=== PATIENT | female | born 1980 | race Caucasian/White ===

== ENCOUNTER 2017-03-10 20:36 | Emergency (ER) | payer BC ==
[2017-03-10] MEDS ORDERED: Sodium Chloride 0.9% 1,000 ML IV ONE (21:05)
[2017-03-10] MEDS ORDERED: Ondansetron 4 MG/2 ML SDV IVPUSH ONE (21:05)
--- NOTE | 2017-03-10 21:25 | EDM.PDOC ---
ED HPI GENERAL MEDICAL PROBLEM - General Chief Complaint: Abdominal Pain Stated Complaint: NAUSEA/WEAK/CHILLS/DIZZY/HEADACHE Time Seen by Provider: 03/10/17 20:59 - History of Present Illness INITIAL COMMENTS - FREE TEXT/NARRATIVE: HISTORY AND PHYSICAL: History of present illness: Patient 36-year-old white female presents with concern nausea vomiting diarrhea 1 day she thinks is related to some bad food she ate at a fast food restaurant she states she had some Rasmussen's approximately 2:00 in the started several hours subsequent. She's had no fever chills she has some crampy abdominal discomfort denies vaginal discharge or irregular bleeding denies other concern Review of systems: As per history of present illness and below otherwise all systems reviewed and negative. Past medical history: As per history of present illness and as reviewed below otherwise noncontributory. Surgical history: As per history of present illness and as reviewed below otherwise noncontributory. Social history: No reported history of drug or alcohol abuse. Family history: As per history of present illness and as reviewed below otherwise noncontributory. Physical exam: HEENT: Atraumatic, normocephalic, pupils reactive, negative for conjunctival pallor or scleral icterus, mucous membranes moist, throat clear, neck supple, nontender, trachea midline. Lungs: Clear to auscultation, breath sounds equal bilaterally, chest nontender. Heart: S1S2, regular, negative for clicks, rubs, or JVD. Abdomen: Soft, nondistended, no localized tenderness. Negative for masses or hepatosplenomegaly. Negative for costovertebral tenderness. Pelvis: Stable nontender. Genitourinary: Deferred. Rectal: Deferred. Extremities: Atraumatic, negative for cords or calf pain. Neurovascular unremarkable. Neuro: Awake, alert, oriented. Cranial nerves II through XII unremarkable. Cerebellum unremarkable. Motor and sensory unremarkable throughout. Exam nonfocal. Diagnostics: CBC CMP amylase lipase UA hCG Therapeutics: Normal saline 1 L bolus Zofran 4 mg IV Toradol 30 mg IV when necessary Impression: #1 vomiting/diarrhea #2 dehydration Definitive disposition and diagnosis as appropriate pending reevaluation and review of above. abdomen Pain Score (Numeric/FACES): 7 - Related Data Allergies Allergy/AdvReac Type Severity Reaction Status Date / Time No Known Allergies Allergy Verified 03/10/17 20:43 Home Meds: Home Meds Escitalopram [Lexapro] 10 mg PO DAILY 03/10/17 [History] Levothyroxine [Synthroid] 50 mcg PO ACBREAKFAST 03/10/17 [History] Past Medical History - Past Health History Medical/Surgical History: Denies Medical/Surgical History [employer] History: Reports: Psychiatric History: Reports: Anxiety Endocrine/Metabolic History: Reports: Hypothyroidism Hematologic History: Reports: Anemia - Past Surgical History HEENT Surgical History: Reports: Tonsillectomy Musculoskeletal Surgical History: Reports: Other (See Below) Other Musculoskeletal Surgeries/Procedures:: tendon repair Social & Family History - Family History Family Medical History: Noncontributory Cardiac: Reports: Hypertension, [place] Respiratory: Reports: COPD OBGYN: Reports: Psychiatric: Reports: Depression Endocrine/Metabolic: Reports: Diabetes, type II - Tobacco Use Smoking Status *Q: Never Smoker Years of Tobacco use: 5 Packs/Tins Daily: 1 Second Hand Smoke Exposure: Yes - Recreational Drug Use Recreational Drug Use: No ED ROS GENERAL - Review of Systems Review Of Systems: ROS reveals no pertinent complaints other than HPI. ED EXAM, GENERAL - Physical Exam Exam: See Below (See dictation) Course - Vital Signs Last Recorded V/S: Last Vital Signs Temp 36.4 C 03/10/17 20:36 Pulse 85 03/10/17 21:33 Resp 18 03/10/17 21:33 BP 122/72 03/10/17 21:33 Pulse Ox 100 03/10/17 21:33 - Orders/Labs/Meds Orders: Active Orders 24 hr Category Date Time Status Abdomen Pelvis w Cont [CT] Stat Exams 03/10/17 22:09 Taken Labs: Laboratory Tests 03/10/17 03/10/17 03/10/17 Range/Units 21:05 21:05 21:08 WBC 15.71 H (4.0-11.0) K/uL RBC 4.64 (4.30-5.90) M/uL Hgb 14.5 (12.0-16.0) g/dL Hct 41.8 (36.0-46.0) % MCV 90.1 (80.0-98.0) fL MCH 31.3 (27.0-32.0) pg MCHC 34.7 (31.0-37.0) g/dL RDW Std Deviation 40.2 (28.0-62.0) fl RDW Coeff of Almita 12 (11.0-15.0) % Plt Count 317 (150-400) K/uL MPV 9.90 (7.40-12.00) fL Neut % (Auto) 85.9 H (48.0-80.0) % Lymph % (Auto) 7.3 L (16.0-40.0) % [place] % (Auto) 5.3 (0.0-15.0) % Eos % (Auto) 1.2 (0.0-7.0) % Baso % (Auto) 0.3 (0.0-1.5) % Neut # (Auto) 13.5 H (1.4-5.7) K/uL Lymph # (Auto) 1.2 (0.6-2.4) K/uL [place] # (Auto) 0.8 (0.0-0.8) K/uL Eos # (Auto) 0.2 (0.0-0.7) K/uL Baso # (Auto) 0.0 (0.0-0.1) K/uL Nucleated RBC % 0.0 /100WBC Nucleated RBCs # 0 K/uL Sodium (136-146) mmol/L Potassium (3.5-5.1) mmol/L Chloride (98-110) mmol/L Carbon Dioxide (21-31) mmol/L BUN (6.0-23.0) mg/dL Creatinine (0.6-1.5) mg/dL Est Cr Clr Drug Dosing mL/min Estimated GFR (MDRD) ml/min Glucose (60-110) mg/dL Calcium (8.8-10.8) mg/dL Total Bilirubin (0.1-1.5) mg/dL AST (5-40) IU/L ALT (8-54) IU/L Alkaline Phosphatase (40-150) Total Protein (6.0-8.0) g/dL Albumin (3.5-5.0) g/dL Globulin (2.0-3.5) g/dL Albumin/Globulin Ratio (1.3-2.8) Amylase (10-90) U/L Lipase (7-80) U/L Urine Color YELLOW Urine Appearance CLEAR Urine pH 6.0 (5.0-8.0) Ur Specific [place] 1.025 (1.001-1.035) Urine Protein TRACE (NEGATIVE) mg/dL Urine Glucose (UA) NEGATIVE (NEGATIVE) mg/dL Urine Ketones TRACE H (NEGATIVE) mg/dL Urine Occult Blood TRACE-INTACT (NEGATIVE) Urine Nitrite NEGATIVE (NEGATIVE) Urine Bilirubin NEGATIVE (NEGATIVE) Urine Urobilinogen 0.2 (<2.0) EU/dL Ur Leukocyte Esterase NEGATIVE (NEGATIVE) Urine RBC 0-1 (0-2/HPF) Urine WBC 1-2 (0-5/HPF) Ur Epithelial Cells FEW (NONE-FEW) Urine Bacteria FEW (NEGATIVE) Urine HCG, Qual NEGATIVE (NEGATIVE) 03/10/17 Range/Units 21:08 WBC (4.0-11.0) K/uL RBC (4.30-5.90) M/uL Hgb (12.0-16.0) g/dL Hct (36.0-46.0) % MCV (80.0-98.0) fL MCH (27.0-32.0) pg MCHC (31.0-37.0) g/dL RDW Std Deviation (28.0-62.0) fl RDW Coeff of [place]mita (11.0-15.0) % Plt Count (150-400) K/uL MPV (7.40-12.00) fL Neut % (Auto) (48.0-80.0) % Lymph % (Auto) (16.0-40.0) % [place] % (Auto) (0.0-15.0) % Eos % (Auto) (0.0-7.0) % Baso % (Auto) (0.0-1.5) % Neut # (Auto) (1.4-5.7) K/uL Lymph # (Auto) (0.6-2.4) K/uL [place] # (Auto) (0.0-0.8) K/uL Eos # (Auto) (0.0-0.7) K/uL Baso # (Auto) (0.0-0.1) K/uL Nucleated RBC % /100WBC Nucleated RBCs # K/uL Sodium 142 (136-146) mmol/L Potassium 3.8 (3.5-5.1) mmol/L Chloride 104 (98-110) mmol/L Carbon Dioxide 23 (21-31) mmol/L BUN 17 (6.0-23.0) mg/dL Creatinine 0.8 (0.6-1.5) mg/dL Est Cr Clr Drug Dosing 81.19 mL/min Estimated GFR (MDRD) > 60.0 ml/min Glucose 112 H (60-110) mg/dL Calcium 9.7 (8.8-10.8) mg/dL Total Bilirubin 0.5 (0.1-1.5) mg/dL AST 29 (5-40) IU/L ALT 28 (8-54) IU/L Alkaline Phosphatase 138 (40-150) Total Protein 8.5 H (6.0-8.0) g/dL Albumin 4.8 (3.5-5.0) g/dL Globulin 3.7 H (2.0-3.5) g/dL Albumin/Globulin Ratio 1.3 (1.3-2.8) Amylase 106 H (10-90) U/L Lipase 28 (7-80) U/L Urine Color Urine Appearance Urine pH (5.0-8.0) Ur Specific [place] (1.001-1.035) Urine Protein (NEGATIVE) mg/dL Urine Glucose (UA) (NEGATIVE) mg/dL Urine Ketones (NEGATIVE) mg/dL Urine Occult Blood (NEGATIVE) Urine Nitrite (NEGATIVE) Urine Bilirubin (NEGATIVE) Urine Urobilinogen (<2.0) EU/dL Ur Leukocyte Esterase (NEGATIVE) Urine RBC (0-2/HPF) Urine WBC (0-5/HPF) Ur Epithelial Cells (NONE-FEW) Urine Bacteria (NEGATIVE) Urine HCG, Qual (NEGATIVE) Meds: Medications Discontinued Medications Generic Name Dose Route Start Last Admin Trade Name Freq PRN Reason Stop Dose Admin Sodium Chloride 1,000 mls @ 999 mls/hr 03/10/17 21:05 03/10/17 21:09 Normal Saline IV 03/10/17 22:05 999 mls/hr .Bolus ONE Administration Iopamidol 100 ml 03/10/17 22:41 03/10/17 22:41 Isovue Multipack-370 (76%) IVPUSH 03/10/17 22:42 100 ml ONETIME STA Administration Ketorolac Tromethamine 30 mg 03/10/17 21:48 03/10/17 21:55 Toradol IVPUSH 03/10/17 21:49 30 mg ONETIME ONE Administration Ondansetron HCl 4 mg 03/10/17 21:05 03/10/17 21:10 Zofran IVPUSH 03/10/17 21:06 4 mg ONETIME ONE Administration Departure - Departure Time of Disposition: 23:11 Disposition: Home, Self-Care 01 Condition: Good Clinical Impression: Gastroenteritis, Dehydration - Discharge Information Referrals: PCP,None [Primary Care Provider] - Forms: ED Department Discharge Additional Instructions: The following information is given to patients seen in the emergency department who are being discharged to home. This information is to outline your options for follow-up care. We provide all patients seen in our emergency department with a follow-up referral. The need for follow-up, as well as the timing and circumstances, are variable depending upon the specifics of your emergency department visit. If you don't have a primary care physician on staff, we will provide you with a referral. We always advise you to contact your personal physician following an emergency department visit to inform them of the circumstance of the visit and for follow-up with them and/or the need for any referrals to a consulting specialist. The emergency department will also refer you to a specialist when appropriate. This referral assures that you have the opportunity for followup care with a specialist. All of these measure are taken in an effort to provide you with optimal care, which includes your followup. Under all circumstances we always encourage you to contact your private physician who remains a resource for coordinating your care. When calling for followup care, please make the office aware that this follow-up is from your recent emergency room visit. If for any reason you are refused follow-up, please contact the emergency department at and asked to speak to the emergency department charge nurse. Push fluids clear liquids as directed follow primary medical doctor 1-2 days return as needed as discussed - My Orders Last 24 Hours: My Active Orders 03/10/17 22:09 Abdomen Pelvis w Cont [CT] Stat - Assessment/Plan Last 24 Hours: My Active Orders 03/10/17 22:09 Abdomen Pelvis w Cont [CT] Stat
[2017-03-10 21:39] LABS: CHLORIDE,CL 104 mmol/L (98-110); SODIUM,NA 142 mmol/L (136-146)
[2017-03-10] MEDS ORDERED: Ketorolac 30 MG/ML SDV IVPUSH ONE (21:48)
[2017-03-10] MEDS ORDERED: Iopamidol 755 MG/ML 500 ML Multipack Bottle IVPUSH STA (22:41)
[2017-03-10 23:21] VITALS: BP 100/55
--- NOTE | 2017-03-11 10:15 | CT ---
EXAM DATE: 03/10/17 PATIENT'S AGE: 36 Patient: MISBAH TIWARI Facility: [place], [place] Site . Site : 1980 Study: CT Abdomen/Pelvis [id number]/[id number] 10:45:24 PM Ordering Physician: Simone Valenzuela Final Report: INDICATION: Generalized abdominal pain with vomiting, nausea, diarrhea. HCG negative. TECHNIQUE: CT abdomen and pelvis acquired with i.v. 100 mL Isovue 370. Coronal and sagittal reformats were obtained. COMPARISON: None FINDINGS: Lower chest: Unremarkable. Liver: Mild low attenuation liver parenchyma relative to the spleen, suggesting fatty infiltration. No focal liver lesion. Spleen: Unremarkable. Pancreas: Unremarkable. Gallbladder and bile ducts: Unremarkable. Kidneys: Unremarkable. No kidney or ureteral stones and no hydronephrosis seen. Adrenal glands: Unremarkable. GI tract: Loops of large and small bowel are normal in caliber. No abnormal bowel wall thickening or abnormal mesenteric fat stranding or fluid. Scattered segments of large and small bowel are mildly fluid-filled, nonspecific finding. Normal appendix with intraluminal air well visualized, series 201, image 98. Vascular: Unremarkable. Lymph nodes: Unremarkable. Miscellaneous: Unremarkable. No pneumoperitoneum is seen. No significant ascites is noted. Pelvic Organs: Right calcified uterine fibroid, series 201, image 91. Adnexa unremarkable. Bladder unremarkable. No significant free pelvic fluid. Bones: Unremarkable for age. IMPRESSION: 1. Normal appendix. 2. Scattered loops of large and small bowel demonstrate intraluminal fluid, nonspecific finding. Based on clinical history, findings may indicate underlying enteritis. No bowel obstruction, free air, or significant free fluid. Dictated by Ludin Jennings MD @ 03/10/2017 10:55:31 PM Dictated by: Ludin Jennings MD @ 03/10/2017 22:55:42 (Electronic Signature) Report Signed by Proxy. [facility]
== END 2017-03-10 23:22 | disposition home or self-care (01) ==
LOC: MW.ED 20:36
DX: K52.9 Noninfective gastroenteritis and colitis, unspecified (principal); E86.0 Dehydration; E11.9 Type 2 diabetes mellitus without complications
CPT/HCPCS: 36415; 74177; 80053; 81001; 81025; 82150; 83690; 85025; 96361; 96374; 96375; 99284; J1885; J2405; J7040; Q9967; 99283

== ENCOUNTER 2018-07-29 19:34 | Inpatient (IN) | payer BC ==
[2018-07-29] MEDS: Lactated Ringers 1,000 ML IV SCH ×2 (19:55→23:37)
[2018-07-29] MEDS ORDERED: Sodium Chloride 0.9% 10 ML SDV IV PRN (19:57)
[2018-07-29] MEDS ORDERED: ceFAZolin 2 GM in Premix Bag 1 BAG IV ONE (19:57)
[2018-07-29] MEDS ORDERED: Citric Acid/Sodium Citrate Solution 30 ML Cup PO ONE (19:57)
[2018-07-29] MEDS ORDERED: Sodium Chloride 0.9% 2.5 ML Syringe FLUSH PRN (19:57)
[2018-07-29] MEDS ORDERED: Sodium Chloride 0.9% 10 ML Syringe FLUSH PRN (19:57)
[2018-07-29] MEDS ORDERED: Oxytocin/0.9 % Sodium Chloride 30 UNIT/500 ML BAG IV SCH (20:00)
[2018-07-29] MEDS ORDERED: Lactated Ringers 1,000 ML IV SCH (20:00)
[2018-07-29] MEDS ORDERED: Morphine PF 10 MG/10 ML SDV ONE (20:16)
[2018-07-29] MEDS ORDERED: Rocuronium 10 MG/ML 10 ML Syringe ONE (20:36)
[2018-07-29] MEDS ORDERED: Propofol 200 MG/20 ML SDV ONE (20:36)
[2018-07-29] MEDS ORDERED: Lidocaine 2% 5 ML SDV ONE (20:36)
[2018-07-29] MEDS ORDERED: Ondansetron 4 MG/2 ML SDV ONE (20:36)
[2018-07-29] MEDS ORDERED: fentaNYL 250 MCG/5 ML SDV ONE ×2 (20:37→21:00)
[2018-07-29] MEDS ORDERED: Midazolam 1 MG/ML 2 ML SDV ONE (20:37)
[2018-07-29] MEDS ORDERED: Oxytocin/0.9 % Sodium Chloride 30 UNIT/500 ML BAG ONE (20:45)
[2018-07-29] MEDS ORDERED: HYDROmorphone 2 MG/ML Syringe ONE ×2 (20:47→22:10)
[2018-07-29] MEDS ORDERED: Phenylephrine/Normal Saline 100 MCG/ML 10 ML Syringe ONE (21:20)
[2018-07-29] MEDS ORDERED: fentaNYL 100 MCG/2 ML SDV ONE (21:28)
[2018-07-29] MEDS ORDERED: Arista AH Absorbable Hemostat ONE (21:32)
--- NOTE | 2018-07-29 21:48 | PCM.PREANE ---
Preanesthetic Assessment - Procedure Proposed Procedure: Stat for herpes outbreak /P:6 - Initially dilated to 5 and quickly progresses to 8 cm - Anesthesia/Transfusion/Family Hx Anesthesia History: Prior Anesthesia Without Reaction Family History of Anesthesia Reaction: No Transfusion History: No Prior Transfusion(s) - Review of Systems General: No Symptoms Pulmonary: No Symptoms Cardiovascular: No Symptoms Gastrointestinal: No Symptoms Neurological: No Symptoms Other: Reports: Anxiety - Physical Assessment NPO Status Date: 07/29/18 NPO Status Time: 13:00 Height: 5 ft 3 in Weight: 220 lb ASA Class: 2E Mental Status: Alert & Oriented x3 Airway Class: Mallampati = 2 Dentition: Reports: Normal Dentition Thyro-Mental Finger Breadths: 3 Mouth Opening Finger Breadths: 3 ROM/Head Extension: Full Lungs: Clear to Auscultation, Normal Respiratory Effort Cardiovascular: Regular Rate, Regular Rhythm - Lab Values: Laboratory Last Values WBC 12.34 K/uL (4.0-11.0) H 07/29/18 20:16 RBC 3.79 M/uL (4.30-5.90) L 07/29/18 20:16 Hgb 10.9 g/dL (12.0-16.0) L 07/29/18 20:16 Hct 32.2 % (36.0-46.0) L 07/29/18 20:16 MCV 85.0 fL (80.0-98.0) 07/29/18 20:16 MCH 28.8 pg (27.0-32.0) 07/29/18 20:16 MCHC 33.9 g/dL (31.0-37.0) 07/29/18 20:16 RDW Std Deviation 45.0 fl (28.0-62.0) 07/29/18 20:16 RDW Coeff of Almita 15 % (11.0-15.0) 07/29/18 20:16 Plt Count 212 K/uL (150-400) 07/29/18 20:16 MPV 11.80 fL (7.40-12.00) 07/29/18 20:16 Nucleated RBC % 0.3 /100WBC 07/29/18 20:16 Nucleated RBCs # 0 K/uL 07/29/18 20:16 Membrane Rupture POSITIVE 03/13/19 19:30 - Allergies Allergies/Adverse Reactions: Allergies Allergy/AdvReac Type Severity Reaction Status Date / Time No Known Allergies Allergy Verified 07/29/18 19:46 - Blood Blood Available: No Product(s) Available: None - Anesthesia Plan Free Text/Narrative:: SAB with backup GA - Acknowledgements Anesthesia Type Planned: Spinal Pt an Appropriate Candidate for the Planned Anesthesia: Yes Alternatives and Risks of Anesthesia Discussed w Pt/Guardian: Yes Pt/Guardian Understands and Agrees with Anesthesia Plan: Yes PreAnesthesia Questionnaire - Past Health History Medical/Surgical History: Denies Medical/Surgical History [employer]TRY [employer] History: Reports: Psychiatric History: Reports: Anxiety Endocrine/Metabolic History: Reports: Hypothyroidism Hematologic History: Reports: Anemia - Past Surgical History HEENT Surgical History: Reports: Tonsillectomy Musculoskeletal Surgical History: Reports: Other (See Below) Other Musculoskeletal Surgeries/Procedures:: tendon repair - HOME MEDS Home Medications: Home Meds Escitalopram [Lexapro] 10 mg PO DAILY 03/10/17 [History] Levothyroxine [Synthroid] 50 mcg PO ACBREAKFAST 03/10/17 [History] Acetaminophen [Tylenol Extra Strength] 1,000 mg PO BID 03/14/18 [History] Slp216/FA/Omega3/Dha/Fish Oil [ Gummies] 2 tab PO DAILY 03/14/18 [ History] - CURRENT (IN HOUSE) MEDS Current Meds: Current Medications Oxytocin/Sodium Chloride (Oxytocin 30 Unit/500 Ml-Ns) 30 unit in 500 mls @ 250 mls/hr IV TITRATE JIM Lactated Ringer's (Ringers, Lactated) 1,000 mls @ 500 mls/hr IV BOLUS JIM Sodium Chloride (Saline Flush) 10 ml FLUSH ASDIRECTED PRN PRN Reason: Keep Vein Open Sodium Chloride (Saline Flush) 2.5 ml FLUSH ASDIRECTED PRN PRN Reason: Keep Vein Open Sodium Chloride (Normal Saline) 10 ml IV ASDIRECTED PRN PRN Reason: IV Use Discontinued Medications Citric Acid/Sodium Citrate (Bicitra Solution) 30 ml PO ONETIME ONE Stop: 07/29/18 19:58 Fentanyl (Sublimaze) Confirm Administered Dose 250 mcg .ROUTE .STK-MED ONE Stop: 07/29/18 20:38 Fentanyl (Sublimaze) Confirm Administered Dose 250 mcg .ROUTE .STK-MED ONE Stop: 07/29/18 21:01 Hydromorphone HCl (Dilaudid) Confirm Administered Dose 2 mg .ROUTE .STK-MED ONE Stop: 07/29/18 20:48 Cefazolin Sodium/Dextrose 2 gm (/ Premix) 50 mls @ 100 mls/hr IV ONETIME ONE Stop: 07/29/18 20:26 Oxytocin/Sodium Chloride (Oxytocin 30 Unit/500 Ml-Ns) Confirm Administered Dose 30 unit in 500 mls @ as directed .ROUTE .STK-MED ONE Stop: 07/29/18 20:46 Lidocaine (Xylocaine-Mpf 2%) Confirm Administered Dose 5 ml .ROUTE .STK-MED ONE Stop: 07/29/18 20:37 Midazolam HCl (Versed 1 Mg/Ml) Confirm Administered Dose 2 mg .ROUTE .STK-MED ONE Stop: 07/29/18 20:38 Morphine Sulfate (Duramorph Pf) Confirm Administered Dose 10 mg .ROUTE .STK-MED ONE Stop: 07/29/18 20:17 Ondansetron HCl (Zofran) Confirm Administered Dose 4 mg .ROUTE .STK-MED ONE Stop: 07/29/18 20:37 Phenylephrine HCl (Phenylephrine In Ns 100 Mcg/Ml) Confirm Administered Dose 1 mg .ROUTE .STK-MED ONE Stop: 07/29/18 21:21 Propofol (Diprivan 20 Ml) Confirm Administered Dose 200 mg .ROUTE .STK-MED ONE Stop: 07/29/18 20:37 Rocuronium [place] (Zemuron) Confirm Administered Dose 100 mg .ROUTE .STK-MED ONE Stop: 07/29/18 20:37
[2018-07-29] MEDS ORDERED: Octyl 2-Cyanoacrylate 1 Tube ONE (21:50)
[2018-07-29] MEDS ORDERED: diphenhydrAMINE 50 MG/ML SDV ONE (22:10)
[2018-07-29] MEDS ORDERED: Ketorolac 30 MG/ML SDV ONE (22:27)
[2018-07-29] MEDS ORDERED: Lanolin 100% Cream 7 GM Tube TOP PRN (22:30)
[2018-07-29] MEDS ORDERED: Ondansetron 4 MG/2 ML SDV IVPUSH PRN (22:30)
[2018-07-29] MEDS ORDERED: Bisacodyl 10 MG Supp RECTAL PRN (22:30)
--- NOTE | 2018-07-29 22:45 | PCM.LDHP ---
L&D History of Present Illness - General Date of Service: 07/29/18 (late entry) Admit Problem/Dx: Patient Status Order with Admit Dx/Problem 07/29/18 19:47 Patient Status [ADT] Routine 07/29/18 22:30 Patient Status [ADT] Routine Admission Diagnosis/Problem Admission Diagnosis/Problem - planned Source of Information: Patient History Limitations: Reports: No Limitations - History of Present Illness Timing/Duration: Reports: gradual onset, getting worse Location, : Reports: Abdomen Quality: Reports: Pressure Severity: Moderate Improves with: Reports: None Worsens with: Reports: None Associated Symptoms: Reports: vaginal fluid (Loss of fluid, clear per patient, just prior to arrival. Then, contractions began. 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 She has not ever had a known herpes outbreak in the past.) - Related Data Allergies/Adverse Reactions: Allergies Allergy/AdvReac Type Severity Reaction Status Date / Time No Known Allergies Allergy Verified 07/29/18 19:46 Home Medications: Home Meds Escitalopram [Lexapro] 10 mg PO DAILY 03/10/17 [History] Levothyroxine [Synthroid] 50 mcg PO ACBREAKFAST 03/10/17 [History] Acetaminophen [Tylenol Extra Strength] 1,000 mg PO BID 03/14/18 [History] [id number]/FA/Omega3/Dha/Fish Oil [ Gummies] 2 tab PO DAILY 03/14/18 [ History] Past Medical History - Past Health History Medical/Surgical History: Denies Medical/Surgical History (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 No prior known outbreaks.) [place] History: Reports: Psychiatric History: Reports: Anxiety Endocrine/Metabolic History: Reports: Hypothyroidism Hematologic History: Reports: Anemia - Past Surgical History HEENT Surgical History: Reports: Tonsillectomy Musculoskeletal Surgical History: Reports: Other (See Below) Other Musculoskeletal Surgeries/Procedures:: tendon repair Social & Family History - Family History Family Medical History: Noncontributory Cardiac: Reports: Hypertension, [place] Respiratory: Reports: COPD OBGYN: Reports: Psychiatric: Reports: Depression Endocrine/Metabolic: Reports: Diabetes, type II - Tobacco Use Smoking Status *Q: Never Smoker Second Hand Smoke Exposure: No - Caffeine Use Caffeine Use: Reports: Soda - Recreational Drug Use Recreational Drug Use: No H&P Review of Systems - Review of Systems: Review Of Systems: See Below General: Reports: No Symptoms HEENT: Reports: No Symptoms Pulmonary: Reports: No Symptoms Cardiovascular: Reports: No Symptoms Gastrointestinal: Reports: No Symptoms Genitourinary: Reports: Other (Uterine contractions, becoming more painful.) Musculoskeletal: Reports: No Symptoms Skin: Reports: Other (She noticed a sore on her labia. Unsure if she may have shaved it. Concern for a herpes outbreak.) Psychiatric: Reports: No Symptoms Neurological: Reports: No Symptoms Hematologic/Lymphatic: Reports: No Symptoms Immunologic: Reports: No Symptoms L&D Exam - Exam Exam: See Below (At the end of the physical exam, after identifying the labial ulcerated lesion, discussion was held regarding delivery. Risks, benefits discussed. Purpose is for protection of baby. Parents voice understanding, and agree to delivery.) - Vital Signs Vital Signs: Last Vital Signs Temp 36 C 07/29/18 22:10 Pulse 102 H 07/29/18 22:35 Resp 1 L 07/29/18 22:35 BP 132/64 07/29/18 22:35 Pulse Ox 100 07/29/18 22:35 Weight: 99.79 kg - OB Specific Contraction Intensity: Moderate to Strong Heart Tones: Present Heart Rate (FHR) Variability: Moderate (6-25 bmp) Presentation: Vertex - Costello Score Costello Score Cervix Position: Midposition Costello Score Consistency: Soft Costello Score Dilation: > 5 cm - Exam General: Alert, Oriented, Cooperative Neck: Supple Lungs: Clear to Auscultation Cardiovascular: Regular Rate, Regular Rhythm GI/Abdominal Exam: Soft Genitourinary: Other (Thereis a small lesion on the patient's fight posterior labia majora--it is erythematous, with a ulcerated-appearing base. It is possible that this is a herpes outbreak lesion.) Back Exam: Normal Inspection, Full Range of Motion Extremities: Normal Inspection Skin: Warm, Dry, Intact - Patient Data Lab Results Last 24 hrs: Laboratory Results - last 24 hr 07/29/18 07/29/18 07/29/18 Range/Units 19:30 20:16 20:16 WBC 12.34 H (4.0-11.0) K/uL RBC 3.79 L (4.30-5.90) M/uL Hgb 10.9 L (12.0-16.0) g/dL Hct 32.2 L (36.0-46.0) % MCV 85.0 (80.0-98.0) fL MCH 28.8 (27.0-32.0) pg MCHC 33.9 (31.0-37.0) g/dL RDW Std Deviation 45.0 (28.0-62.0) fl RDW Coeff of Almita 15 (11.0-15.0) % Plt Count 212 (150-400) K/uL MPV 11.80 (7.40-12.00) fL Nucleated RBC % 0.3 /100WBC Nucleated RBCs # 0 K/uL Membrane Rupture POSITIVE Blood Type O POSITIVE Antibody Screen NEGATIVE Result Diagrams: 07/29/18 20:16 - Problem List (1) Delivery by section of full-term SNOMED Code(s): 753337568 ICD Code: O82 - ENCOUNTER FOR DELIVERY WITHOUT INDICATION Status: Acute Current Visit: Yes (2) History of herpes evaluations SNOMED Code(s): 263734402 ICD Code: Z92.89 - PERSONAL HISTORY OF OTHER MEDICAL TREATMENT Status: Acute Current Visit: Yes (3) Genital labial ulcer Status: Acute Current Visit: Yes Problem List Initiated/Reviewed/Updated: Yes Orders Last 24hrs: Active Orders 24 hr Category Date Time Status Patient Status [ADT] Routine ADT 07/29/18 22:30 Ordered Ambulate [RC] PER UNIT ROUTINE Care 07/29/18 22:30 Ordered Antiembolic Devices [RC] PER UNIT ROUTINE Care 07/29/18 22:31 Ordered Bedrest [RC] ASDIRECTED Care 07/29/18 22:30 Ordered Communication Order [RC] PER UNIT ROUTINE Care 07/29/18 22:30 Ordered Communication Order [RC] PER UNIT ROUTINE Care 07/29/18 22:30 Ordered Communication Order [RC] Per Unit Routine Care 07/29/18 22:30 Ordered Intake and Output [RC] Q1HR Care 07/29/18 22:30 Ordered May Shower [RC] ASDIRECTED Care 07/29/18 22:30 Ordered Notify Provider Intake and Out [RC] ASDIRECTED Care 07/29/18 22:30 Ordered Notify Provider Vital Signs [RC] ASDIRECTED Care 07/29/18 22:30 Ordered RT Incentive Spirometry [RC] Q2HWA Care 07/29/18 22:30 Ordered Up ad Daina [RC] ASDIRECTED Care 07/29/18 19:47 Inactive Up ad Daina [RC] ASDIRECTED Care 07/29/18 19:57 Inactive Vaginal Exam [RC] Click to Edit Care 07/29/18 19:47 Inactive Vital Signs [RC] PER UNIT ROUTINE Care 07/29/18 19:47 Inactive Vital Signs [RC] PER UNIT ROUTINE Care 07/29/18 19:57 Inactive Vital Signs [RC] Q1H Care 07/29/18 22:30 Ordered Clear Liquid Diet [DIET] Diet 07/30/18 Breakfast Ordered HEMOGLOBIN/HEMATOCRIT,HH [HEME] Timed Lab 07/30/18 02:00 Ordered Acetaminophen/oxyCODONE [Percocet 325-5 MG] Med 07/29/18 22:30 Ordered 1 tab PO Q4H PRN Acetaminophen/oxyCODONE [Percocet 325-5 MG] Med 07/29/18 22:30 Ordered 2 tab PO Q4H PRN Bisacodyl [Dulcolax] Med 07/29/18 22:30 Ordered 10 mg RECTAL ONETIME PRN Docusate Sodium [Colace] Med 07/30/18 09:00 Ordered 100 mg PO BID Ibuprofen [Motrin] Med 07/29/18 22:30 Ordered 800 mg PO Q8H PRN Ketorolac [Toradol] Med 07/29/18 22:30 Ordered 30 mg IVPUSH Q6H Lactated Ringers @ 125 MLS/HR(1000ml) Med 07/29/18 22:30 Ordered Lactated Ringers [Ringers, Lactated] 1,000 ml IV ASDIRECTED Lanolin [Lansinoh HPA] Med 07/29/18 22:30 Ordered See Dose Instructions TOP ASDIRECTED PRN Ondansetron [Zofran] Med 07/29/18 22:30 Ordered 4 mg IVPUSH Q4H PRN diphenhydrAMINE [Benadryl] Med 07/29/18 22:30 Ordered 25 mg IVPUSH Q6H PRN Abdominal Binder [OM.PC] Routine Oth 07/29/18 22:30 Ordered Assess Lochia [WOMSER] Per Unit Routine Oth 07/29/18 22:30 Ordered Assess Uterine Involution [WOMSER] Per Unit Routine Oth 07/29/18 22:30 Ordered Breast Pump [WOMSER] Per Unit Routine Oth 07/29/18 22:30 Ordered Peripheral IV Discontinue [OM.PC] Routine Oth 07/29/18 22:30 Ordered Sequential Compression Device [OM.PC] Per Unit Routine Oth 07/29/18 22:30 Ordered Resuscitation Status Routine Resus Stat 07/29/18 22:30 Ordered
[2018-07-29] MEDS ORDERED: Morphine PF 30 MG/30 ML PCA Vial IV SCH (23:30)
--- NOTE | 2018-07-29 23:31 | PCM.POSTAN ---
POST ANESTHESIA ASSESSMENT - MENTAL STATUS Mental Status: Alert, Oriented - RESPIRATORY Respiratory Status: Respiratory Rate WNL, Airway Patent, O2 Saturation Stable - CARDIOVASCULAR CV Status: Pulse Rate WNL, Blood Pressure Stable - GASTROINTESTINAL GI Status: No Symptoms - PAIN Pain Score: 3 - POST OP HYDRATION Hydration Status: Adequate & Stable
--- NOTE | 2018-07-29 23:36 | PCM48HPAN ---
Post Anesthesia Note - EVALUATION WITHIN 48HRS OF ANESTHETIC Vital Signs in Normal Range: Yes Patient Participated in Evaluation: Yes Respiratory Function Stable: Yes Airway Patent: Yes Cardiovascular Function Stable: Yes Hydration Status Stable: Yes Pain Control Satisfactory: Yes Nausea and Vomiting Control Satisfactory: Yes Mental Status Recovered: Yes Resp Rate: 15 - COMMENTS/OBSERVATIONS Free Text/Narrative:: Pt stable postop and awaiting [employer]ER HELPER to be started. Pt states is just tender now. VSS.
[2018-07-30] MEDS: Ketorolac 30 MG/ML SDV IVPUSH SCH ×5 (05:23→23:34)
[2018-07-30] MEDS: Lactated Ringers 1,000 ML IV SCH (06:37)
--- NOTE | 2018-07-30 07:30 | PCM.PNPP ---
- General Info Date of Service: 07/30/18 (POD#1 emergent primary LTCS due to herpetic lesion, in labor) Functional Status: Reports: Pain Controlled, Other (currently with clear liquids ) - Review of Systems General: Reports: Weakness HEENT: Reports: No Symptoms Pulmonary: Reports: No Symptoms Cardiovascular: Reports: No Symptoms Gastrointestinal: Reports: No Symptoms Genitourinary: Reports: No Symptoms Musculoskeletal: Reports: No Symptoms - General Info Date of Service: 07/30/18 - Patient Data Vital Signs - Most Recent: Last Vital Signs Temp 36.8 C 07/30/18 06:00 Pulse 98 07/30/18 06:00 Resp 16 07/30/18 06:00 BP 136/63 07/30/18 06:00 Pulse Ox 94 L 07/30/18 06:00 Weight - Most Recent: 99.79 kg I&O - Last 24 Hours: Intake & Output 07/29/18 07/30/18 07/30/18 22:59 06:59 14:59 Intake Total 4448 Output Total 1080 Balance 3368 Lab Results - Last 24 Hours: Laboratory Results - last 24 hr 07/29/18 07/29/18 07/29/18 Range/Units 19:30 20:16 20:16 WBC 12.34 H (4.0-11.0) K/uL RBC 3.79 L (4.30-5.90) M/uL Hgb 10.9 L (12.0-16.0) g/dL Hct 32.2 L (36.0-46.0) % MCV 85.0 (80.0-98.0) fL MCH 28.8 (27.0-32.0) pg MCHC 33.9 (31.0-37.0) g/dL RDW Std Deviation 45.0 (28.0-62.0) fl RDW Coeff of Almita 15 (11.0-15.0) % Plt Count 212 (150-400) K/uL MPV 11.80 (7.40-12.00) fL Nucleated RBC % 0.3 /100WBC Nucleated RBCs # 0 K/uL Membrane Rupture POSITIVE Blood Type O POSITIVE Antibody Screen NEGATIVE 07/30/18 Range/Units 02:06 WBC (4.0-11.0) K/uL RBC (4.30-5.90) M/uL Hgb 8.5 L (12.0-16.0) g/dL Hct 25.8 L (36.0-46.0) % MCV (80.0-98.0) fL MCH (27.0-32.0) pg MCHC (31.0-37.0) g/dL RDW Std Deviation (28.0-62.0) fl RDW Coeff of Almita (11.0-15.0) % Plt Count (150-400) K/uL MPV (7.40-12.00) fL Nucleated RBC % /100WBC Nucleated RBCs # K/uL Membrane Rupture Blood Type Antibody Screen Med Orders - Current: Current Medications Bisacodyl (Dulcolax) 10 mg RECTAL ONETIME PRN PRN Reason: Constipation Diphenhydramine HCl (Benadryl) 25 mg IVPUSH Q6H PRN PRN Reason: Itching or Nausea Docusate Sodium (Colace) 100 mg PO BID [facility] Emollient Ointment (Lansinoh Hpa) 0 gm TOP ASDIRECTED PRN PRN Reason: Sore Nipples Lactated Ringer's (Ringers, Lactated) 1,000 mls @ 125 mls/hr IV ASDIRECTED [facility] Last Admin: 07/30/18 06:37 Dose: 125 mls/hr Ibuprofen (Motrin) 800 mg PO Q8H PRN PRN Reason: mild pain or fever Ketorolac Tromethamine (Toradol) 30 mg IVPUSH Q6H [facility] Stop: 07/30/18 22:31 Last Admin: 07/30/18 05:23 Dose: 30 mg Ondansetron HCl (Zofran) 4 mg IVPUSH Q4H PRN PRN Reason: Nausea/Vomiting Oxycodone/Acetaminophen (Percocet 325-5 Mg) 1 tab PO Q4H PRN PRN Reason: Pain (moderate 4-6) Oxycodone/Acetaminophen (Percocet 325-5 Mg) 2 tab PO Q4H PRN PRN Reason: Pain (moderate 4-6) Discontinued Medications Citric Acid/Sodium Citrate (Bicitra Solution) 30 ml PO ONETIME ONE Stop: 07/29/18 19:58 Diphenhydramine HCl (Benadryl) Confirm Administered Dose 50 mg .ROUTE .STK-MED ONE Stop: 07/29/18 22:11 Fentanyl (Sublimaze) Confirm Administered Dose 250 mcg .ROUTE .STK-MED ONE Stop: 07/29/18 20:38 Fentanyl (Sublimaze) Confirm Administered Dose 250 mcg .ROUTE .STK-MED ONE Stop: 07/29/18 21:01 Fentanyl (Sublimaze) Confirm Administered Dose 100 mcg .ROUTE .STK-MED ONE Stop: 07/29/18 21:29 Hydromorphone HCl (Dilaudid) Confirm Administered Dose 2 mg .ROUTE .STK-MED ONE Stop: 07/29/18 20:48 Hydromorphone HCl (Dilaudid) Confirm Administered Dose 2 mg .ROUTE .STK-MED ONE Stop: 07/29/18 22:11 Cefazolin Sodium/Dextrose 2 gm (/ Premix) 50 mls @ 100 mls/hr IV ONETIME ONE Stop: 07/29/18 20:26 Oxytocin/Sodium Chloride (Oxytocin 30 Unit/500 Ml-Ns) 30 unit in 500 mls @ 250 mls/hr IV TITRATE JIM Lactated Ringer's (Ringers, Lactated) 1,000 mls @ 500 mls/hr IV BOLUS JIM Oxytocin/Sodium Chloride (Oxytocin 30 Unit/500 Ml-Ns) Confirm Administered Dose 30 unit in 500 mls @ as directed .ROUTE .STK-MED ONE Stop: 07/29/18 20:46 Ketorolac Tromethamine (Toradol) Confirm Administered Dose 30 mg .ROUTE .STK- MED ONE Stop: 07/29/18 22:28 Lidocaine (Xylocaine-Mpf 2%) Confirm Administered Dose 5 ml .ROUTE .STK-MED ONE Stop: 07/29/18 20:37 Midazolam HCl (Versed 1 Mg/Ml) Confirm Administered Dose 2 mg .ROUTE .STK-MED ONE Stop: 07/29/18 20:38 Morphine Sulfate (Duramorph Pf) Confirm Administered Dose 10 mg .ROUTE .STK-MED ONE Stop: 07/29/18 20:17 Morphine Sulfate (Morphine Sales Project Administrator 30 Mg In 30 Ml) 30 mg IV ASDIRECTED [facility]; Protocol Last Admin: 07/30/18 04:18 Dose: 30 mg Non-Formulary Medication (Coco Ah Absorbable Hemostat) Confirm Administered Dose 2 each .ROUTE .STK-MED ONE Stop: 07/29/18 21:33 Octyl Cyanoacrylate (Dermabond Advance) Confirm Administered Dose 1 applic .ROUTE .STK-MED ONE Stop: 07/29/18 21:51 Ondansetron HCl (Zofran) Confirm Administered Dose 4 mg .ROUTE .STK-MED ONE Stop: 07/29/18 20:37 Phenylephrine HCl (Phenylephrine In Ns 100 Mcg/Ml) Confirm Administered Dose 1 mg .ROUTE .STK-MED ONE Stop: 07/29/18 21:21 Propofol (Diprivan 20 Ml) Confirm Administered Dose 200 mg .ROUTE .STK-MED ONE Stop: 07/29/18 20:37 Rocuronium [place] (Zemuron) Confirm Administered Dose 100 mg .ROUTE .STK-MED ONE Stop: 07/29/18 20:37 Sodium Chloride (Saline Flush) 10 ml FLUSH ASDIRECTED PRN PRN Reason: Keep Vein Open Sodium Chloride (Saline Flush) 2.5 ml FLUSH ASDIRECTED PRN PRN Reason: Keep Vein Open Sodium Chloride (Normal Saline) 10 ml IV ASDIRECTED PRN PRN Reason: IV Use - Infant Interaction Disposition, : in Room with Family Infant Interaction: Holding Infant Feeding: Continues to Breastfeed Support Person: - Recovery Exam Fundal Tone: Firm Fundal Level: 2 Fingerbreadths Below Umbilicus Fundal Placement: Midline Lochia Amount: Small (normal) Lochia Color: Rubra/Red Perineum Description: Intact, Minimal Bruising/Swelling, Other (see below) (not examined) Episiotomy/Laceration: None (LTCS) Bladder Status: Indwelling Catheter in Place Urinary Elimination: Indwelling Catheter - Exam General: Oriented, Cooperative, No Acute Distress Neck: Supple Lungs: Other (Deep breaths with ease) GI/Abdominal Exam: Soft, Non-Tender Extremities: Normal Inspection Skin: Warm, Dry, Intact Wound/Incisions: Other (Dressing clean and dry) Psy/Mental Status: Normal Affect - Problem List & Annotations (1) Delivery by section of full-term SNOMED Code(s): 054774232 Code(s): O82 - ENCOUNTER FOR DELIVERY WITHOUT INDICATION Status: Acute Current Visit: Yes (2) History of herpes evaluations SNOMED Code(s): 192085523 Code(s): Z92.89 - PERSONAL HISTORY OF OTHER MEDICAL TREATMENT Status: Acute Current Visit: Yes (3) Genital labial ulcer Status: Acute Current Visit: Yes - Problem List Review Problem List Initiated/Reviewed/Updated: Yes - My Orders Last 24 Hours: My Active Orders 07/29/18 19:47 Up ad Daina [RC] ASDIRECTED Vaginal Exam [RC] Click to Edit Vital Signs [RC] PER UNIT ROUTINE 07/29/18 19:57 Up ad Daina [RC] ASDIRECTED Vital Signs [RC] PER UNIT ROUTINE 07/29/18 22:00 MISC TEST Routine 07/29/18 22:30 Patient Status [ADT] Routine Ambulate [RC] PER UNIT ROUTINE Communication Order [RC] PER UNIT ROUTINE Communication Order [RC] PER UNIT ROUTINE Communication Order [RC] Per Unit Routine Intake and Output [RC] Q1HR May Shower [RC] ASDIRECTED Notify Provider Intake and Out [RC] ASDIRECTED Notify Provider Vital Signs [RC] ASDIRECTED RT Incentive Spirometry [RC] Q2HWA Acetaminophen/oxyCODONE [Percocet 325-5 MG] 1 tab PO Q4H PRN Acetaminophen/oxyCODONE [Percocet 325-5 MG] 2 tab PO Q4H PRN Bisacodyl [Dulcolax] 10 mg RECTAL ONETIME PRN Ketorolac [Toradol] 30 mg IVPUSH Q6H Lactated Ringers [Ringers, Lactated] 1,000 ml IV ASDIRECTED Lanolin [Lansinoh HPA] See Dose Instructions TOP ASDIRECTED PRN Ondansetron [Zofran] 4 mg IVPUSH Q4H PRN diphenhydrAMINE [Benadryl] 25 mg IVPUSH Q6H PRN Abdominal Binder [OM.PC] Routine Assess Lochia [WOMSER] Per Unit Routine Assess Uterine Involution [WOMSER] Per Unit Routine Breast Pump [WOMSER] Per Unit Routine Peripheral IV Discontinue [OM.PC] Routine Sequential Compression Device [OM.PC] Per Unit Routine Resuscitation Status Routine 07/29/18 22:31 Antiembolic Devices [RC] PER UNIT ROUTINE 07/30/18 07:21 Vital Signs [RC] PER UNIT ROUTINE 07/30/18 07:22 Ambulate [RC] PER UNIT ROUTINE Intake and Output [RC] QSHIFT 07/30/18 09:00 Docusate Sodium [Colace] 100 mg PO BID 07/30/18 12:00 HEMOGLOBIN/HEMATOCRIT,HH [HEME] Timed 07/30/18 Breakfast Regular Diet [DIET] 07/31/18 04:30 Ibuprofen [Motrin] 800 mg PO Q8H PRN - Assessment Assessment:: Pt is doing very well POD#1 emergent LTCS, EBL 1200. HGB 10.9 ->8.5. VSS Good UOP Increase activity and diet. HGB at noon - Plan Plan:: Routine post-op cares now.
[2018-07-30] MEDS: diphenhydrAMINE 50 MG/ML SDV IVPUSH PRN ×2 (07:52→17:20)
[2018-07-30] MEDS: Docusate Sodium 100 MG Cap PO SCH ×2 (09:14→21:01)
--- NOTE | 2018-07-30 16:52 | OR ---
SURGEON: TARAH LAU MD DATE OF PROCEDURE: 07/29/2018 NAME OF PROCEDURE: Primary low-transverse section, emergent. ANESTHESIOLOGIST: Dr. Gregg. DROP HAMMER SETTER UP also present. PREOPERATIVE DIAGNOSES: 1. at term in this multiparous patient. 2. Active labor with history of ruptured membranes per patient. 3. History of known antibodies to HSV1 and HSV2, the patient with no prior herpes outbreak. 4. Labial ulceration lesions present. POSTOPERATIVE DIAGNOSES: 1. at term in this multiparous patient. 2. Active labor with history of ruptured membranes per patient. 3. History of known antibodies to HSV1 and HSV2, the patient with no prior herpes outbreak. 4. Labial ulceration lesions present. 5. Liveborn male , scores of 8 at 1 minute and 9 at 5 minutes, weight of 3770 g, time is 2042 hours. ANESTHESIA: General. INDICATION: This patient came to the Labor and Delivery unit describing rupture of membranes of large amount of fluid. She is a multiparous patient. She was having painful contractions. She then reported her history of antibodies to HSV1 and HSV2 (the patient had not been to care in recent previous weeks). She was concerned about a labial irritation, and concerned regarding the herpes. She stated that she believed she would be needing a . On exam, the posterior right region of labia majora did have an ulcerated lesion, it was an erythematous with an ulcerated base. It looked as though there were actually possibly two small lesions, these might be sebaceous, folliculitis with razor burn, but I cannot say visually that it may not be a herpes lesion due to risks of transmission of herpes to fetus, was discussed, recommended, and accepted by the patient. Risks were discussed and they include, but are not limited to the possibility of bleeding, possibility of injury to bowel or bladder, other structures, possible injury to baby. There is possibility of the need for blood transfusion. There is possibility of infection. Future pregnancies will be complicated by history of section, the patient voices understanding of all of these risks. She does agree to proceed to section. PROCEDURE IN DETAIL: The patient was taken to the operating room, spinal anesthesia was attempted. During the attempt of spinal anesthesia placement, the patient felt as though her baby was being born. Examination revealed that she is 8 cm. The spinal was unable to be rapidly placed, and the patient was placed in the supine position, Guido catheter was placed, she was sterilely prepped and draped, and general anesthesia was induced. When notified by the anesthesiologist, incision was made sharply in skin, this was carried sharply to the fascia. Fascia was incised in the midline and the fascial incision was bluntly carried laterally. Fascia was removed bluntly from the underlying rectus muscles. Midline was identified, and the rectus muscles were bluntly stretched. The bladder flap was identified. Uterine incision was made well cephalad to the bladder flap. The uterus was scored in midline and incision was carried bluntly and laterally. was delivered from cephalic presentation. Infant was vigorous, crying, and moving at . Delayed cord clamp for 60 seconds, then cord was doubly clamped and cut. The baby was handed to the awaiting nurse team. Cord blood was obtained. The placenta was removed with fundal massage and with manual extraction, and will be sent for histologic evaluation. The uterus was exteriorized and was wiped free of debris. The uterus was closed with running interlocking suture of 0 chromic gut, subsequent layers were with 0 Vicryl. An imbricating layer was placed, burying the first layer, this resulted in improved hemostasis, but several [id number] sutures and another running sutures were needed to obtain hemostasis. At this point, evaluation revealed the need for cautery and 3-0 Vicryl to close small vessels in the superficial region of the incision. The left fallopian tube was bleeding from the fimbriated end, possibly due to trauma from the case. 3-0 Vicryl was used to close this region and good hemostasis was noted. At this point, the posterior gutter was irrigated and aspirated free of debris. Blood clots were noted in the lateral gutters. Clots were removed, and the evaluation of the incision continued to reveal bleeding for which Vicryl suture was placed. On the patient's left, there was peritoneal region in space, both of which were oozing and bleeding, but no arterial vessel was noted. Surgicel was placed. The peritoneum was placed over the Surgicel. It was in the right space by the uterus, and extending to the lower portion of the uterus near the bladder flap. The peritoneum was placed manually over this region and not stitched. The uterus was returned to the abdominal cavity. Lateral gutters were irrigated and aspirated free of debris. Blood clots were removed. Rectus muscles were identified. They had been traumatized by the trauma of the case, but there was no bleeding noted. Hemostasis was again proven over the uterine incision. At this point, fascia was closed with 0 looped Polysorb. There was good palpable evidence of full fascial closure. Subcutaneous tissues were irrigated and aspirated free of debris. 3-0 plain gut was used to close the fatty layer. 4-0 Monocryl was used to close the skin. Dermabond was then placed. Dressings were placed. Sponge and instrument counts were reported as correct. The patient was moved to the recovery room in good condition. Baby was with father and was in good condition. Estimated blood loss was 1200 by my evaluation, mostly in lap sponges. After the case, the ulcerated regions were cultured with culture tube. Vital signs were stable. The patient was making clear yellow urine at the end of the case. JARRETT / OZZY /[id number]
[2018-07-30] MEDS: Acetaminophen/oxyCODONE 325-5 MG Tab PO PRN ×2 (21:01→23:48)
[2018-07-31] MEDS: Acetaminophen/oxyCODONE 325-5 MG Tab PO PRN ×5 (03:55→21:48)
[2018-07-31] MEDS ORDERED: Ibuprofen 800 MG Tab PO PRN (04:30)
--- NOTE | 2018-07-31 07:49 | PCM.PNPP ---
- General Info Date of Service: 07/31/18 Functional Status: Reports: Pain Controlled, Tolerating Diet, Ambulating, Urinating - Review of Systems General: Reports: No Symptoms HEENT: Reports: No Symptoms Pulmonary: Reports: No Symptoms Cardiovascular: Reports: No Symptoms Gastrointestinal: Reports: No Symptoms Genitourinary: Reports: No Symptoms Musculoskeletal: Reports: No Symptoms Skin: Reports: No Symptoms Neurological: Reports: No Symptoms Psychiatric: Reports: No Symptoms (After her last child, she experienced anxiety and was on medication for a period of several months. She is having no symptoms currently.) - General Info Date of Service: 07/31/18 - Patient Data Vital Signs - Most Recent: Last Vital Signs Temp 37.1 C 07/31/18 04:07 Pulse 101 H 07/31/18 04:07 Resp 17 07/31/18 04:07 BP 126/55 L 07/31/18 04:07 Pulse Ox 96 07/31/18 04:07 Weight - Most Recent: 99.79 kg Lab Results - Last 24 Hours: Laboratory Results - last 24 hr 07/30/18 Range/Units 12:03 Hgb 7.0 L (12.0-16.0) g/dL Hct 21.1 L (36.0-46.0) % Med Orders - Current: Current Medications Bisacodyl (Dulcolax) 10 mg RECTAL ONETIME PRN PRN Reason: Constipation Diphenhydramine HCl (Benadryl) 25 mg IVPUSH Q6H PRN PRN Reason: Itching or Nausea Last Admin: 07/30/18 17:20 Dose: 25 mg Docusate Sodium (Colace) 100 mg PO BID [facility] Last Admin: 07/30/18 21:01 Dose: 100 mg Emollient Ointment (Lansinoh Hpa) 0 gm TOP ASDIRECTED PRN PRN Reason: Sore Nipples Lactated Ringer's (Ringers, Lactated) 1,000 mls @ 125 mls/hr IV ASDIRECTED [facility] Last Admin: 07/30/18 06:37 Dose: 125 mls/hr Ibuprofen (Motrin) 800 mg PO Q8H PRN PRN Reason: mild pain or fever Ondansetron HCl (Zofran) 4 mg IVPUSH Q4H PRN PRN Reason: Nausea/Vomiting Last Admin: 07/30/18 20:29 Dose: 4 mg Oxycodone/Acetaminophen (Percocet 325-5 Mg) 1 tab PO Q4H PRN PRN Reason: Pain (moderate 4-6) Last Admin: 07/30/18 23:48 Dose: 1 tab Oxycodone/Acetaminophen (Percocet 325-5 Mg) 2 tab PO Q4H PRN PRN Reason: Pain (moderate 4-6) Last Admin: 07/31/18 03:55 Dose: 2 tab Discontinued Medications Citric Acid/Sodium Citrate (Bicitra Solution) 30 ml PO ONETIME ONE Stop: 07/29/18 19:58 Diphenhydramine HCl (Benadryl) Confirm Administered Dose 50 mg .ROUTE .STK-MED ONE Stop: 07/29/18 22:11 Fentanyl (Sublimaze) Confirm Administered Dose 250 mcg .ROUTE .STK-MED ONE Stop: 07/29/18 20:38 Fentanyl (Sublimaze) Confirm Administered Dose 250 mcg .ROUTE .STK-MED ONE Stop: 07/29/18 21:01 Fentanyl (Sublimaze) Confirm Administered Dose 100 mcg .ROUTE .STK-MED ONE Stop: 07/29/18 21:29 Hydromorphone HCl (Dilaudid) Confirm Administered Dose 2 mg .ROUTE .STK-MED ONE Stop: 07/29/18 20:48 Hydromorphone HCl (Dilaudid) Confirm Administered Dose 2 mg .ROUTE .STK-MED ONE Stop: 07/29/18 22:11 Cefazolin Sodium/Dextrose 2 gm (/ Premix) 50 mls @ 100 mls/hr IV ONETIME ONE Stop: 07/29/18 20:26 Oxytocin/Sodium Chloride (Oxytocin 30 Unit/500 Ml-Ns) 30 unit in 500 mls @ 250 mls/hr IV TITRATE JIM Lactated Ringer's (Ringers, Lactated) 1,000 mls @ 500 mls/hr IV BOLUS JIM Oxytocin/Sodium Chloride (Oxytocin 30 Unit/500 Ml-Ns) Confirm Administered Dose 30 unit in 500 mls @ as directed .ROUTE .STK-MED ONE Stop: 07/29/18 20:46 Ketorolac Tromethamine (Toradol) Confirm Administered Dose 30 mg .ROUTE .STK- MED ONE Stop: 07/29/18 22:28 Ketorolac Tromethamine (Toradol) 30 mg IVPUSH Q6H JIM Stop: 07/30/18 22:31 Last Admin: 07/30/18 23:34 Dose: Not Given Lidocaine (Xylocaine-Mpf 2%) Confirm Administered Dose 5 ml .ROUTE .STK-MED ONE Stop: 07/29/18 20:37 Midazolam HCl (Versed 1 Mg/Ml) Confirm Administered Dose 2 mg .ROUTE .STK-MED ONE Stop: 07/29/18 20:38 Morphine Sulfate (Duramorph Pf) Confirm Administered Dose 10 mg .ROUTE .STK-MED ONE Stop: 07/29/18 20:17 Morphine Sulfate (Morphine Display Trimmer 30 Mg In 30 Ml) 30 mg IV ASDIRECTED JIM; Protocol Last Admin: 07/30/18 04:18 Dose: 30 mg Non-Formulary Medication (Coco Ah Absorbable Hemostat) Confirm Administered Dose 2 each .ROUTE .STK-MED ONE Stop: 07/29/18 21:33 Octyl Cyanoacrylate (Dermabond Advance) Confirm Administered Dose 1 applic .ROUTE .STK-MED ONE Stop: 07/29/18 21:51 Last Admin: 07/30/18 07:36 Dose: Not Given Ondansetron HCl (Zofran) Confirm Administered Dose 4 mg .ROUTE .STK-MED ONE Stop: 07/29/18 20:37 Phenylephrine HCl (Phenylephrine In Ns 100 Mcg/Ml) Confirm Administered Dose 1 mg .ROUTE .STK-MED ONE Stop: 07/29/18 21:21 Propofol (Diprivan 20 Ml) Confirm Administered Dose 200 mg .ROUTE .STK-MED ONE Stop: 07/29/18 20:37 Rocuronium [place] (Zemuron) Confirm Administered Dose 100 mg .ROUTE .STK-MED ONE Stop: 07/29/18 20:37 Sodium Chloride (Saline Flush) 10 ml FLUSH ASDIRECTED PRN PRN Reason: Keep Vein Open Sodium Chloride (Saline Flush) 2.5 ml FLUSH ASDIRECTED PRN PRN Reason: Keep Vein Open Sodium Chloride (Normal Saline) 10 ml IV ASDIRECTED PRN PRN Reason: IV Use - Infant Interaction Infant Disposition, : [place] in Room with Family Interaction: Holding Infant Feeding: Continues to Breastfeed Support Person: , Other (see below) (teenage children) - Recovery Exam Fundal Tone: Firm Fundal Level: 2 Fingerbreadths Below Umbilicus Fundal Placement: Midline Lochia Amount: Scant Lochia Color: Rubra/Red Perineum Description: Intact, Minimal Bruising/Swelling, Other (see below) ( perineum not examined) Episiotomy/Laceration: None Bladder Status: Voiding Urinary Elimination: Voided - Exam General: Alert, Oriented, Cooperative, No Acute Distress Neck: Supple Lungs: Other (deep breath without difficulty. Breathing normally) GI/Abdominal Exam: Soft, Non-Tender, No Distention Extremities: Non-Tender, Pedal Edema (pedal edema slight--decreased from yesterday) Skin: Warm, Dry, Intact Wound/Incisions: Healing Well Psy/Mental Status: Alert, Normal Affect, Normal Mood - Problem List & Annotations (1) Delivery by section of full-term infant SNOMED Code(s): 048225202 Code(s): O82 - ENCOUNTER FOR DELIVERY WITHOUT INDICATION Status: Acute Current Visit: Yes (2) History of herpes evaluations SNOMED Code(s): 870786054 Code(s): Z92.89 - PERSONAL HISTORY OF OTHER MEDICAL TREATMENT Status: Acute Current Visit: Yes (3) Genital labial ulcer Status: Acute Current Visit: Yes - Problem List Review Problem List Initiated/Reviewed/Updated: Yes - My Orders Last 24 Hours: My Active Orders 07/30/18 07:21 Vital Signs [RC] PER UNIT ROUTINE 07/30/18 07:22 Ambulate [RC] PER UNIT ROUTINE Intake and Output [RC] QSHIFT 07/30/18 09:00 Docusate Sodium [Colace] 100 mg PO BID 07/31/18 04:30 Ibuprofen [Motrin] 800 mg PO Q8H PRN - Assessment Assessment:: POD#2 emergent LTCS. Acute blood loss anemia Hgb 7.o, asymptomatic and doing well. Continue to increase activity today. Contact precautions due to possible herpes outbreak. Likely discharge tomorrow. - Plan Plan:: Increase activity. Likely discharge tomorrow.
[2018-07-31] MEDS: Ondansetron 4 MG Tab PO PRN (09:20)
[2018-07-31] MEDS: diphenhydrAMINE 25 MG Cap PO PRN ×2 (09:20→23:45)
[2018-07-31] MEDS: Docusate Sodium 100 MG Cap PO SCH ×2 (09:34→20:08)
[2018-08-01] MEDS: Acetaminophen/oxyCODONE 325-5 MG Tab PO PRN ×3 (02:13→13:13)
[2018-08-01 07:35] VITALS: BP 118/61
[2018-08-01] MEDS: Docusate Sodium 100 MG Cap PO SCH (09:29)
--- NOTE | 2018-08-01 10:23 | PCM.PNPP ---
- General Info Date of Service: 08/01/18 Functional Status: Reports: Pain Controlled, Tolerating Diet, Ambulating, Urinating - Review of Systems General: Reports: Fatigue. Denies: Fever, Weakness Pulmonary: Denies: Shortness of Breath Cardiovascular: Denies: Chest Pain, Palpitations, Lightheadedness Gastrointestinal: Reports: Abdominal Pain (incisional, controlled with oral pain meds). Denies: Nausea, Vomiting Neurological: Reports: No Symptoms Psychiatric: Reports: No Symptoms - General Info Date of Service: 08/01/18 - Patient Data Vital Signs - Most Recent: Last Vital Signs Temp 36.6 C 08/01/18 07:32 Pulse 97 08/01/18 07:32 Resp 16 08/01/18 07:32 BP 118/61 08/01/18 07:32 Pulse Ox 92 L 08/01/18 07:32 Weight - Most Recent: 99.79 kg Micro Results - Last 24 Hours: Microbiology 07/29/18 22:00 Herpes Simplex Virus DNA - Final Genital - [facility] Med Orders - Current: Current Medications Bisacodyl (Dulcolax) 10 mg RECTAL ONETIME PRN PRN Reason: Constipation Diphenhydramine HCl (Benadryl) 25 mg IVPUSH Q6H PRN PRN Reason: Itching or Nausea Last Admin: 07/30/18 17:20 Dose: 25 mg Diphenhydramine HCl (Benadryl) 25 mg PO Q6H PRN PRN Reason: Allergies Last Admin: 07/31/18 23:45 Dose: 25 mg Docusate Sodium (Colace) 100 mg PO BID [facility] Last Admin: 08/01/18 09:29 Dose: 100 mg Emollient Ointment (Lansinoh Hpa) 0 gm TOP ASDIRECTED PRN PRN Reason: Sore Nipples Lactated Ringer's (Ringers, Lactated) 1,000 mls @ 125 mls/hr IV ASDIRECTED [facility] Last Admin: 07/30/18 06:37 Dose: 125 mls/hr Ibuprofen (Motrin) 800 mg PO Q8H PRN PRN Reason: mild pain or fever Last Admin: 08/01/18 09:29 Dose: 800 mg Ondansetron HCl (Zofran) 4 mg IVPUSH Q4H PRN PRN Reason: Nausea/Vomiting Last Admin: 07/30/18 20:29 Dose: 4 mg Ondansetron HCl (Zofran) 4 mg PO Q4H PRN PRN Reason: Nausea/Vomiting Last Admin: 07/31/18 09:20 Dose: 4 mg Oxycodone/Acetaminophen (Percocet 325-5 Mg) 1 tab PO Q4H PRN PRN Reason: Pain (moderate 4-6) Last Admin: 08/01/18 06:55 Dose: 1 tab Oxycodone/Acetaminophen (Percocet 325-5 Mg) 2 tab PO Q4H PRN PRN Reason: Pain (moderate 4-6) Last Admin: 08/01/18 02:13 Dose: 2 tab Discontinued Medications Citric Acid/Sodium Citrate (Bicitra Solution) 30 ml PO ONETIME ONE Stop: 07/29/18 19:58 Diphenhydramine HCl (Benadryl) Confirm Administered Dose 50 mg .ROUTE .STK-MED ONE Stop: 07/29/18 22:11 Fentanyl (Sublimaze) Confirm Administered Dose 250 mcg .ROUTE .STK-MED ONE Stop: 07/29/18 20:38 Fentanyl (Sublimaze) Confirm Administered Dose 250 mcg .ROUTE .STK-MED ONE Stop: 07/29/18 21:01 Fentanyl (Sublimaze) Confirm Administered Dose 100 mcg .ROUTE .STK-MED ONE Stop: 07/29/18 21:29 Hydromorphone HCl (Dilaudid) Confirm Administered Dose 2 mg .ROUTE .STK-MED ONE Stop: 07/29/18 20:48 Hydromorphone HCl (Dilaudid) Confirm Administered Dose 2 mg .ROUTE .STK-MED ONE Stop: 07/29/18 22:11 Cefazolin Sodium/Dextrose 2 gm (/ Premix) 50 mls @ 100 mls/hr IV ONETIME ONE Stop: 07/29/18 20:26 Oxytocin/Sodium Chloride (Oxytocin 30 Unit/500 Ml-Ns) 30 unit in 500 mls @ 250 mls/hr IV TITRATE JIM Lactated Ringer's (Ringers, Lactated) 1,000 mls @ 500 mls/hr IV BOLUS JIM Oxytocin/Sodium Chloride (Oxytocin 30 Unit/500 Ml-Ns) Confirm Administered Dose 30 unit in 500 mls @ as directed .ROUTE .STK-MED ONE Stop: 07/29/18 20:46 Ketorolac Tromethamine (Toradol) Confirm Administered Dose 30 mg .ROUTE .STK- MED ONE Stop: 07/29/18 22:28 Ketorolac Tromethamine (Toradol) 30 mg IVPUSH Q6H JIM Stop: 07/30/18 22:31 Last Admin: 07/30/18 23:34 Dose: Not Given Lidocaine (Xylocaine-Mpf 2%) Confirm Administered Dose 5 ml .ROUTE .STK-MED ONE Stop: 07/29/18 20:37 Midazolam HCl (Versed 1 Mg/Ml) Confirm Administered Dose 2 mg .ROUTE .STK-MED ONE Stop: 07/29/18 20:38 Morphine Sulfate (Duramorph Pf) Confirm Administered Dose 10 mg .ROUTE .STK-MED ONE Stop: 07/29/18 20:17 Morphine Sulfate (Morphine Audio Installer 30 Mg In 30 Ml) 30 mg IV ASDIRECTED JMI; Protocol Last Admin: 07/30/18 04:18 Dose: 30 mg Non-Formulary Medication (Coco Ah Absorbable Hemostat) Confirm Administered Dose 2 each .ROUTE .STK-MED ONE Stop: 07/29/18 21:33 Octyl Cyanoacrylate (Dermabond Advance) Confirm Administered Dose 1 applic .ROUTE .STK-MED ONE Stop: 07/29/18 21:51 Last Admin: 07/30/18 07:36 Dose: Not Given Ondansetron HCl (Zofran) Confirm Administered Dose 4 mg .ROUTE .STK-MED ONE Stop: 07/29/18 20:37 Phenylephrine HCl (Phenylephrine In Ns 100 Mcg/Ml) Confirm Administered Dose 1 mg .ROUTE .STK-MED ONE Stop: 07/29/18 21:21 Propofol (Diprivan 20 Ml) Confirm Administered Dose 200 mg .ROUTE .STK-MED ONE Stop: 07/29/18 20:37 Rocuronium [place] (Zemuron) Confirm Administered Dose 100 mg .ROUTE .STK-MED ONE Stop: 07/29/18 20:37 Sodium Chloride (Saline Flush) 10 ml FLUSH ASDIRECTED PRN PRN Reason: Keep Vein Open Sodium Chloride (Saline Flush) 2.5 ml FLUSH ASDIRECTED PRN PRN Reason: Keep Vein Open Sodium Chloride (Normal Saline) 10 ml IV ASDIRECTED PRN PRN Reason: IV Use - Infant Interaction Infant Disposition, : in Room with Family Infant Interaction: Holding Infant Feeding: Continues to Breastfeed Support Person: , Other (see below) (teenage children) - Recovery Exam Fundal Tone: Firm Fundal Level: 2 Fingerbreadths Below Umbilicus Fundal Placement: Midline Lochia Amount: Scant Lochia Color: Rubra/Red Perineum Description: Intact, Minimal Bruising/Swelling Episiotomy/Laceration: None Bladder Status: Voiding Urinary Elimination: Voided - Exam General: Alert, Oriented Lungs: Normal Respiratory Effort Cardiovascular: Regular Rate, Regular Rhythm GI/Abdominal Exam: Normal Bowel Sounds, Soft Extremities: Pedal Edema (trace). No: Bertrand's Sign Skin: Warm, Dry, Intact Wound/Incisions: Healing Well, No Drainage. No: Erythema Psy/Mental Status: Alert, Normal Affect, Normal Mood - Problem List & Annotations (1) delivery due to maternal disorder SNOMED Code(s): 745670576 Code(s): O99.89 - OTH DISEASES AND CONDITIONS COMPL PREG/CHLDBRTH Status: Acute Current Visit: Yes - Problem List Review Problem List Initiated/Reviewed/Updated: Yes - My Orders Last 24 Hours: My Active Orders 08/01/18 10:19 Ready for Discharge [RC] PER UNIT ROUTINE - Assessment Assessment:: POD#3 emergent LTCS. Anemia - Plan Plan:: Patient is doing well overall and feels ready to go home. She will take oral iron medication and will reevaluate hemoglobin in period. Discharge instructions reviewed. Infection and bleeding warnings reviewed. Follow up at [facility] 2 and 6 weeks
[2018-08-01] MEDS: Ondansetron 4 MG Tab PO PRN (12:15)
== END 2018-08-01 13:35 | disposition home or self-care (01) | DRG 540 ==
LOC: MW.OBCHECK 19:34 → MW.OB 19:57 → MW.OBCHECK 19:57 → MW.OB 19:59 → OBSVTOIN 22:30 → MW.OB 07-30 02:04
PROVIDERS: ADMIT Obstetrics & Gynecology; ATTEND Obstetrics & Gynecology
PROC: 0W3J0ZZ Control Bleeding in Pelvic Cavity, Open Approach (ICD-10-PCS; principal; 2018-07-29)
PROC: 6A550ZT Pheresis of Cord Blood Stem Cells, Single (ICD-10-PCS; principal; 2018-07-29)
PROC: 10D00Z1 Extraction of Products of Conception, Low, Open Approach (ICD-10-PCS; principal; 2018-07-29)
DX: O99.284 Endocrine, nutritional and metabolic diseases complicating childbirth (principal); O98.32 Other infections with a predominantly sexual mode of transmission complicating childbirth; D62 Acute posthemorrhagic anemia; O99.344 Other mental disorders complicating childbirth; E03.9 Hypothyroidism, unspecified; F41.9 Anxiety disorder, unspecified; O99.02 Anemia complicating childbirth; A60.00 Herpesviral infection of urogenital system, unspecified; Z37.0 Single live birth; Z79.899 Other long term (current) drug therapy; Z79.890 Hormone replacement therapy; O67.8 Other intrapartum hemorrhage
CPT/HCPCS: 36415; 59025; 84112; 85014; 85018; 85027; 86850; 86900; 86901; 87529; 88307; A9270-GY; J1170; J1200; J1885; J2001; J2250; J2270; J2274; J2370; J2405; J2590; J2704; J3010; J7120

== ENCOUNTER 2020-01-20 11:32 | Emergency (ER) | payer BC ==
[2020-01-20 13:46] LABS: BLOOD UREA NITROGEN,BUN 6 mg/dL (7.0-18.0); CARBON DIOXIDE,CO2 24.6 mmol/L (21.0-32.0); CHLORIDE,CL 107 mmol/L (98-107); GLUCOSE RANDOM 97 mg/dL (74-106); LIPASE 68 U/L (73-393); POTASSIUM,K 3.3 mmol/L (3.5-5.1); SODIUM,NA 141 mmol/L (136-145)
--- NOTE | 2020-01-20 14:11 | CT ---
CT abdomen and pelvis Technique: Multiple axial sections were obtained from above the dome of the diaphragm inferiorly through the pubic symphysis. Intravenous and oral contrast not utilized. Findings: Small nonobstructing calculi are seen within both kidneys. Right and left ureters showed no dilatation. No abnormal calcifications are seen along the course of the ureters. Visualized lung bases show nothing acute. Noncontrast appearance of the liver appears within normal limits. Pancreas appears within normal limits. Gallbladder contains no calcified gallstones. Pancreas shows no discrete abnormality. Adrenal glands show no nodule. Aorta shows no aneurysm. No retroperitoneal adenopathy or mesenteric abnormalities are seen. No pelvic mass or adenopathy is seen. Mild increased stool is seen throughout the colon. Pessary type opacity is seen within the pelvis. Please correlate. Appendix is seen and is normal in size. Calcification is seen next to the uterus most likely representing calcified uterine fibroid measuring 1.6 cm. Bone window settings were reviewed which show no acute osseous finding. Impression: 1. Multiple nonobstructing calculi within both kidneys. No ureteral dilatation or ureteral stone is seen. 2. Increased stool within the colon. 3. Other findings as noted above. Nothing acute is appreciated. Diagnostic code #2 This report was dictated in MDT
[2020-01-20] MEDS ORDERED: cefTRIAXone 1 GM Vial IM ONE (14:23)
--- NOTE | 2020-01-20 14:33 | EDM.PDOC ---
ED HPI GENERAL MEDICAL PROBLEM - General Chief Complaint: Genitourinary Problem Stated Complaint: kidney infection Time Seen by Provider: 01/20/20 11:33 Source of Information: Reports: Patient History Limitations: Reports: No Limitations - History of Present Illness INITIAL COMMENTS - FREE TEXT/NARRATIVE: HISTORY AND PHYSICAL: History of present illness: Patient is a 39-year-old female who presents to the ED today with concern of burning with urination and bilateral flank pain, left flank pain greater than right for the past 1 day. Patient states she has had burning with urination for the past 1 to 2 weeks but began having flank pain yesterday. Patient states that she thought the urinary tract infection would go away on its own but has began to worsen over the course of the week. Patient states she has had chills at home but has not checked for a fever but does not think that she has had an actual fever. Patient states she has had a history of kidney stones in the past and that the left flank pain feels similar to a kidney stone but also with urinary tract infection symptoms. Patient denies any trauma or injury. Patient denies any other symptoms or concerns. Patient denies fever, chest pain, shortness of breath, or cough. Denies headache, neck stiff ness, change in vision, syncope, or near syncope. Denies nausea, vomiting, abdominal pain, diarrhea, constipation. Has not noted any blood in urine or stool. Patient has been eating and drinking appropriately. Review of systems: As per history of present illness and below otherwise all systems reviewed and negative. Past medical history: As per history of present illness and as reviewed below otherwise noncontributory. Surgical history: As per history of present illness and as reviewed below otherwise noncontributory. Social history: See social history for further information Family history: As per history of present illness and as reviewed below otherwise noncontributory. Physical exam: General: Patient is alert, oriented, and in no acute distress. Patient sitting comfortably on exam table. HEENT: Atraumatic, normocephalic, pupils equal and reactive bilaterally, negative for conjunctival pallor or scleral icterus, mucous membranes moist, TMs normal bilaterally, throat clear, neck supple, nontender, trachea midline. No drooling or trismus noted. No meningeal signs. No hot potato voice noted. Lungs: Clear to auscultation, breath sounds equal bilaterally, chest nontender. Heart: S1S2, regular rate and rhythm without overt murmur Abdomen: Soft, nondistended, nontender. Negative for masses or hepatosplenomegaly. Negative for costovertebral tenderness. Pelvis: Stable nontender. Genitourinary: Deferred. Rectal: Deferred. Skin: Intact, warm, dry. No lesions or rashes noted. Extremities: Atraumatic, negative for cords or calf pain. Neurovascular unremarkable. Neuro: Awake, alert, oriented. Cranial nerves II through XII unremarkable. Cerebellum unremarkable. Motor and sensory unremarkable throughout. Exam nonfocal. Notes: HR on my exam was 80bpm without intervention. Patient does appear well on exam. Admission to the hospital offered to patient and encouraged, but she declines at this time. All risks versus benefits discussed with patient. Signs and symptoms that would prompt return to the ED thoroughly discussed with patient. Since patient is adamantly requesting discharge from ED, will give dose of antibiotic prior to discharge and place on antibiotics at home. Instructions for close monitoring of symptoms discussed with patient. Voices understanding and is agreeable to plan of care. Denies any further questions or concerns at this time. Diagnostics: CBC, CMP, UA w culture, urine hCG, lipase, lactate, blood cultures x2, abdominal pelvic CT without contrast Therapeutics: Rocephin Prescription: Levofloxacin, Pyridium Impression: Complicated urinary tract infection, mild to moderate Plan: 1. Take medication as prescribed. You can alternate ibuprofen and Tylenol as directed for pain and discomfort. 2. Monitor for signs of improvement of infection as discussed. Return to the ED as needed and as discussed. 3. Follow-up with a primary care provider as discussed. Definitive disposition and diagnosis as appropriate pending reevaluation and review of above. bilateral flank Pain Score (Numeric/FACES): 3 - Related Data Allergies Allergy/AdvReac Type Severity Reaction Status Date / Time No Known Allergies Allergy Verified 01/20/20 11:52 Home Meds: Home Meds Levothyroxine [Synthroid] 50 mcg PO ACBREAKFAST 03/10/17 [History] Acetaminophen [Tylenol Extra Strength] 1,000 mg PO BID 03/14/18 [History] Pnv No.103/Folic/Om3s/Fish Oil [ Gummies] 2 tab PO DAILY 03/14/18 [History] Phenazopyridine HCl [Pyridium] 200 mg PO TID 2 Days #6 tablet 01/20/20 [Rx] diphenhydrAMINE [Benadryl] 2 tab PO Q4H 01/20/20 [History] levoFLOXacin [Levofloxacin] 750 mg PO DAILY 5 Days #5 tablet 01/20/20 [Rx] Past Medical History - Past Health History Medical/Surgical History: Denies 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: Psychiatric History: Reports: Anxiety Endocrine/Metabolic History: Reports: Hypothyroidism Hematologic History: Reports: Anemia - Infectious Disease History Infectious Disease History: Reports: Chicken Pox - Past Surgical History HEENT Surgical History: Reports: Tonsillectomy Musculoskeletal Surgical History: Reports: Other (See Below) Other Musculoskeletal Surgeries/Procedures:: tendon repair Social & Family History - Family History Family Medical History: Noncontributory Cardiac: Reports: Hypertension, [place] Respiratory: Reports: COPD OBGYN: Reports: Psychiatric: Reports: Depression Endocrine/Metabolic: Reports: Diabetes, type II - Tobacco Use Smoking Status *Q: Current Every Day Smoker Years of Tobacco use: 20 Packs/Tins Daily: 0.5 - Caffeine Use Caffeine Use: Reports: Soda - Recreational Drug Use Recreational Drug Use: No ED ROS GENERAL - Review of Systems Review Of Systems: Comprehensive ROS is negative, except as noted in HPI. ED EXAM, GENERAL - Physical Exam Exam: See Below (see dictation) Course - Vital Signs Last Recorded V/S: Last Vital Signs Temp 97.5 F 01/20/20 11:49 Pulse 106 H 01/20/20 11:49 Resp 16 01/20/20 11:49 BP 128/70 01/20/20 11:49 Pulse Ox 98 01/20/20 11:49 - Orders/Labs/Meds Orders: Active Orders 24 hr Category Date Time Status Communication Order [RC] STAT Care 01/20/20 14:33 Active CULTURE BLOOD [BC] Stat Lab 01/20/20 14:39 Received CULTURE BLOOD [BC] Stat Lab 01/20/20 14:44 Received CULTURE URINE [RM] Stat Lab 01/20/20 11:55 Received Blood Culture x2 Reflex Set [OM.PC] Stat Oth 01/20/20 14:19 Ordered Labs: Laboratory Tests 01/20/20 01/20/20 01/20/20 Range/Units 11:55 11:56 13:08 WBC 13.00 H (4.0-11.0) K/uL RBC 3.56 L (4.30-5.90) M/uL Hgb 10.5 L (12.0-16.0) g/dL Hct 31.9 L (36.0-46.0) % MCV 89.6 (80.0-98.0) fL MCH 29.5 (27.0-32.0) pg MCHC 32.9 (31.0-37.0) g/dL RDW Std Deviation 41.9 (28.0-62.0) fl RDW Coeff of Almita 13 (11.0-15.0) % Plt Count 318 (150-400) K/uL MPV 9.90 (7.40-12.00) fL Neut % (Auto) 71.1 (48.0-80.0) % Lymph % (Auto) 19.0 (16.0-40.0) % [place] % (Auto) 8.5 (0.0-15.0) % Eos % (Auto) 1.1 (0.0-7.0) % Baso % (Auto) 0.3 (0.0-1.5) % Neut # (Auto) 9.3 H (1.4-5.7) K/uL Lymph # (Auto) 2.5 H (0.6-2.4) K/uL [place] # (Auto) 1.1 H (0.0-0.8) K/uL Eos # (Auto) 0.1 (0.0-0.7) K/uL Baso # (Auto) 0.0 (0.0-0.1) K/uL Nucleated RBC % 0.0 /100WBC Nucleated RBCs # 0 K/uL Lactate (0.20-2.00) mmol/L Sodium (136-145) mmol/L Potassium (3.5-5.1) mmol/L Chloride (98-107) mmol/L Carbon Dioxide (21.0-32.0) mmol/L BUN (7.0-18.0) mg/dL Creatinine (0.6-1.0) mg/dL Est Cr Clr Drug Dosing mL/min Estimated GFR (MDRD) ml/min Glucose (74-106) mg/dL Calcium (8.5-10.1) mg/dL Total Bilirubin (0.2-1.0) mg/dL AST (15-37) IU/L ALT (14-63) IU/L Alkaline Phosphatase (46-116) U/L Total Protein (6.4-8.2) g/dL Albumin (3.4-5.0) g/dL Globulin (2.6-4.0) g/dL Albumin/Globulin Ratio (0.9-1.6) Lipase (73-393) U/L Urine Color YELLOW Urine Appearance CLEAR Urine pH 6.0 (5.0-8.0) Ur Specific [place] 1.025 (1.001-1.035) Urine Protein TRACE H (NEGATIVE) mg/dL Urine Glucose (UA) NEGATIVE (NEGATIVE) mg/dL Urine Ketones NEGATIVE (NEGATIVE) mg/dL Urine Occult Blood NEGATIVE (NEGATIVE) Urine Nitrite POSITIVE H (NEGATIVE) Urine Bilirubin NEGATIVE (NEGATIVE) Urine Urobilinogen 0.2 (<2.0) EU/dL Ur Leukocyte Esterase SMALL H (NEGATIVE) Urine RBC RARE (0-2/HPF) Urine WBC 8-10 (0-5/HPF) Ur Epithelial Cells FEW (NONE-FEW) Urine Bacteria FEW (NEGATIVE) Urine Mucus LIGHT (NONE-MOD) Urine HCG, Qual NEGATIVE (NEGATIVE) 01/20/20 01/20/20 Range/Units 13:08 14:39 WBC (4.0-11.0) K/uL RBC (4.30-5.90) M/uL Hgb (12.0-16.0) g/dL Hct (36.0-46.0) % MCV (80.0-98.0) fL MCH (27.0-32.0) pg MCHC (31.0-37.0) g/dL RDW Std Deviation (28.0-62.0) fl RDW Coeff of Almita (11.0-15.0) % Plt Count (150-400) K/uL MPV (7.40-12.00) fL Neut % (Auto) (48.0-80.0) % Lymph % (Auto) (16.0-40.0) % Avery % (Auto) (0.0-15.0) % Eos % (Auto) (0.0-7.0) % Baso % (Auto) (0.0-1.5) % Neut # (Auto) (1.4-5.7) K/uL Lymph # (Auto) (0.6-2.4) K/uL Avery # (Auto) (0.0-0.8) K/uL Eos # (Auto) (0.0-0.7) K/uL Baso # (Auto) (0.0-0.1) K/uL Nucleated RBC % /100WBC Nucleated RBCs # K/uL Lactate 0.8 (0.20-2.00) mmol/L Sodium 141 (136-145) mmol/L Potassium 3.3 L (3.5-5.1) mmol/L Chloride 107 (98-107) mmol/L Carbon Dioxide 24.6 (21.0-32.0) mmol/L BUN 6 L (7.0-18.0) mg/dL Creatinine 0.8 (0.6-1.0) mg/dL Est Cr Clr Drug Dosing 78.87 mL/min Estimated GFR (MDRD) > 60.0 ml/min Glucose 97 (74-106) mg/dL Calcium 9.1 (8.5-10.1) mg/dL Total Bilirubin 0.3 (0.2-1.0) mg/dL AST 28 (15-37) IU/L ALT 32 (14-63) IU/L Alkaline Phosphatase 121 H (46-116) U/L Total Protein 6.5 (6.4-8.2) g/dL Albumin 3.3 L (3.4-5.0) g/dL Globulin 3.2 (2.6-4.0) g/dL Albumin/Globulin Ratio 1.0 (0.9-1.6) Lipase 68 L (73-393) U/L Urine Color Urine Appearance Urine pH (5.0-8.0) Ur Specific [place] (1.001-1.035) Urine Protein (NEGATIVE) mg/dL Urine Glucose (UA) (NEGATIVE) mg/dL Urine Ketones (NEGATIVE) mg/dL Urine Occult Blood (NEGATIVE) Urine Nitrite (NEGATIVE) Urine Bilirubin (NEGATIVE) Urine Urobilinogen (<2.0) EU/dL Ur Leukocyte Esterase (NEGATIVE) Urine RBC (0-2/HPF) Urine WBC (0-5/HPF) Ur Epithelial Cells (NONE-FEW) Urine Bacteria (NEGATIVE) Urine Mucus (NONE-MOD) Urine HCG, Qual (NEGATIVE) Meds: Medications Discontinued Medications Generic Name Dose Route Start Last Admin Trade Name Teresa PRN Reason Stop Dose Admin Ceftriaxone Sodium 1 gm 01/20/20 14:23 01/20/20 14:50 Rocephin IM 01/20/20 14:24 1 gm ONETIME ONE Administration Lidocaine HCl 2.1 ml 01/20/20 14:45 01/20/20 14:51 Xylocaine-Mpf 1% INJECT 01/20/20 14:46 2.1 ml ONETIME ONE Administration Departure - Departure Time of Disposition: 14:30 Disposition: Home, Self-Care 01 Clinical Impression: Complicated urinary tract infection - Discharge Information Prescriptions: levoFLOXacin [Levofloxacin] 750 mg PO DAILY 5 Days #5 tablet Phenazopyridine HCl [Pyridium] 200 mg PO TID 2 Days #6 tablet Referrals: PCP,None [Primary Care Provider] - Forms: ED Department Discharge Additional Instructions: The following information is given to patients seen in the emergency department who are being discharged to home. This information is to outline your options for follow-up care. We provide all patients seen in our emergency department with a follow-up referral. The need for follow-up, as well as the timing and circumstances, are variable depending upon the specifics of your emergency department visit. If you don't have a primary care physician on staff, we will provide you with a referral. We always advise you to contact your personal physician following an emergency department visit to inform them of the circumstance of the visit and for follow-up with them and/or the need for any referrals to a consulting specialist. The emergency department will also refer you to a specialist when appropriate. This referral assures that you have the opportunity for follow-up care with a specialist. All of these measure are taken in an effort to provide you with o ptimal care, which includes your follow-up. Under all circumstances we always encourage you to contact your private physician who remains a resource for coordinating your care. When calling for follow-up care, please make the office aware that this follow-up is from your recent emergency room visit. If for any reason you are refused follow-up, please contact the [facility] Emergency Department at and asked to speak to the emergency department charge nurse. [facility] [address] [place] [address] [facility] [address] [place] [address] 1. Take medication as prescribed. You can alternate ibuprofen and Tylenol as directed for pain and discomfort. 2. Monitor for signs of improvement of infection as discussed. Return to the ED as needed and as discussed. 3. Follow-up with a primary care provider as discussed. Sepsis Event Note (ED) - Evaluation Sepsis Screening Result: No Definite Risk - Focused Exam Vital Signs: Vital Signs Temp Pulse Resp BP Pulse Ox 01/20/20 11:49 97.5 F 106 H 16 128/70 98 - My Orders Last 24 Hours: My Active Orders 01/20/20 11:55 CULTURE URINE [RM] Stat 01/20/20 14:19 Blood Culture x2 Reflex Set [OM.PC] Stat 01/20/20 14:33 Communication Order [RC] STAT 01/20/20 14:39 CULTURE BLOOD [BC] Stat 01/20/20 14:44 CULTURE BLOOD [BC] Stat - Assessment/Plan Last 24 Hours: My Active Orders 01/20/20 11:55 CULTURE URINE [RM] Stat 01/20/20 14:19 Blood Culture x2 Reflex Set [OM.PC] Stat 01/20/20 14:33 Communication Order [RC] STAT 01/20/20 14:39 CULTURE BLOOD [BC] Stat 01/20/20 14:44 CULTURE BLOOD [BC] Stat
[2020-01-20] MEDS ORDERED: Lidocaine 1% PF 2 ML SDV INJECT ONE (14:45)
[2020-01-20 16:18] VITALS: BP 101/62; PULSE 89
== END 2020-01-20 15:33 | disposition home or self-care (01) ==
LOC: MW.ED 11:32
DX: N39.0 Urinary tract infection, site not specified (principal); F17.210 Nicotine dependence, cigarettes, uncomplicated; E03.9 Hypothyroidism, unspecified; Z79.899 Other long term (current) drug therapy
CPT/HCPCS: 36415; 74176; 80053; 81001; 81025; 83605; 83690; 85025; 87040; 87086; 87088; 87186; 96372; 99284; J0696; J2001; 99283

== ENCOUNTER 2020-01-21 13:54 | Observation (INO) | payer BC, OTHER ==
--- NOTE | 2020-01-21 14:03 | EDM.PDOC ---
ED HPI GENERAL MEDICAL PROBLEM - General Chief Complaint: Genitourinary Problem Stated Complaint: HIGH FEVER Time Seen by Provider: 01/21/20 13:55 Source of Information: Reports: Patient History Limitations: Reports: No Limitations - History of Present Illness INITIAL COMMENTS - FREE TEXT/NARRATIVE: HISTORY AND PHYSICAL: History of present illness: Patient is a 39-year-old female who presents to the emergency room with complaints of bilateral flank pain and dysuria. She has had UTI-like symptoms over the past 2 weeks, was seen in the emergency room yesterday and offered ad mission but declined. She was given IV antibiotics and prescribed levofloxacin. Since being discharged home she has had increased bilateral flank pain, fevers of 101, nausea and generally feeling unwell. She states she would like to be admitted at this time as she feels she is getting worse. Patient denies any headache, change in vision, syncope or near syncope. Denies any chest pain, shortness of breath or cough. Denies any vomiting, diarrhea, constipation or concerns of . Recently completed menses cycle. Has not noted any blood in urine or stool. Patient has not been eating and drinking appropriately, due to nausea. Review of systems: As per history of present illness and below otherwise all systems reviewed and negative. Past medical history: As per history of present illness and as reviewed below otherwise noncontributory. Surgical history: As per history of present illness and as reviewed below otherwise noncontributory. Social history: See social history for further information Family history: As per history of present illness and as reviewed below otherwise noncontributory. Physical exam: General: Well developed and well nourished. Alert and orientated x 3. Nontoxic in appearance and in no acute distress. Vital signs are stable and have been reviewed by me. Nursing notes were reviewed. HEENT: Atraumatic, normocephalic, pupils equal and reactive bilaterally, negative for conjunctival pallor or scleral icterus, mucous membranes moist, neck nontender, trachea midline. No drooling or trismus noted. No meningeal signs. No hot potato voice noted. Lungs: Clear to auscultation, breath sounds equal bilaterally, chest nontender. Normal work of breathing, no accessory muscles used. Heart: S1S2, regular rate and rhythm without overt murmur Abdomen: Soft, nondistended, midline suprapubic tenderness. Negative for masses or hepatosplenomegaly. Bilateral costovertebral tenderness. Pelvis: Stable nontender. Skin: Intact, warm, dry. No lesions or rashes noted. Hematologic: No petechiae or purpra. Mucosa appropriate color and normal nail bed color and refill. Extremities: Atraumatic, moves all extremities per self without difficulty or deficits, negative for cords or calf pain. Neurovascular unremarkable. Neuro: Awake, alert, oriented. Cranial nerves II through XII unremarkable. Cerebellum unremarkable. Motor and sensory unremarkable throughout. Exam nonfocal. Notes: 01/20/2020: CT of the abdomen and pelvis shows multiple nonobstructing stones within both kidneys. No ureteral dilatation or stone is seen. Increased stool is noted within the colon. WBC 13.00, urine showed positive nitrates, 8-10 WBC with few bacteria. Normal lactate. Negative . She was offered admission and declined. She was given Rocephin IV and prescribed levofloxacin as outpatient. Patient's white count is slightly more elevated than yesterday. She has been tolerating fluids, eating ice chips at the bedside. Vital signs remained stable. She would continue to like to be admitted for pain control and further observation. I did call the hospitalist who is agreeable for admission. Diagnostics: CBC, CMP, Lactate, UA Therapeutics: IV fluids, Phenergan IM, Toradol Impression: Pyelonephritis Plan: Med/Surg admission with IV fluids and antibiotics Definitive disposition and diagnosis as appropriate pending reevaluation and review of above. Abdominal Pain Score (Numeric/FACES): 9 - Related Data Allergies Allergy/AdvReac Type Severity Reaction Status Date / Time No Known Allergies Allergy Verified 01/21/20 14:18 Home Meds: Home Meds Levothyroxine [Synthroid] 50 mcg PO ACBREAKFAST 03/10/17 [History] Acetaminophen [Tylenol Extra Strength] 1,000 mg PO BID 03/14/18 [History] Pnv No.103/Folic/Om3s/Fish Oil [ Gummies] 2 tab PO DAILY 03/14/18 [History] Phenazopyridine HCl [Pyridium] 200 mg PO TID 2 Days #6 tablet 01/20/20 [Rx] diphenhydrAMINE [Benadryl] 2 tab PO Q4H 01/20/20 [History] levoFLOXacin [Levofloxacin] 750 mg PO DAILY 5 Days #5 tablet 01/20/20 [Rx] Past Medical History - Past Health History Medical/Surgical History: Denies 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: Psychiatric History: Reports: Anxiety Endocrine/Metabolic History: Reports: Hypothyroidism Hematologic History: Reports: Anemia - Infectious Disease History Infectious Disease History: Reports: Chicken Pox - Past Surgical History HEENT Surgical History: Reports: Tonsillectomy Musculoskeletal Surgical History: Reports: Other (See Below) Other Musculoskeletal Surgeries/Procedures:: tendon repair Social & Family History - Family History Family Medical History: Noncontributory Cardiac: Reports: Hypertension, [place] Respiratory: Reports: COPD OBGYN: Reports: Psychiatric: Reports: Depression Endocrine/Metabolic: Reports: Diabetes, type II - Caffeine Use Caffeine Use: Reports: Soda ED ROS GENERAL - Review of Systems Review Of Systems: Comprehensive ROS is negative, except as noted in HPI. ED EXAM, RENAL/ - Physical Exam Exam: See Below (See dictation) Course - Vital Signs Last Recorded V/S: Last Vital Signs Temp 99.8 F 01/21/20 14:31 Pulse 105 H 01/21/20 14:31 Resp 20 01/21/20 14:31 BP 104/62 01/21/20 14:31 Pulse Ox 97 01/21/20 14:31 - Orders/Labs/Meds Orders: Active Orders 24 hr Category Date Time Status CORONAVIRUS COVID-19 PCR PHL Stat Lab 01/21/20 14:17 Ordered UA RFX LUCY AND CULT IF INDIC [URIN] Stat Lab 01/21/20 14:25 Received Labs: Laboratory Tests 01/21/20 01/21/20 01/21/20 Range/Units 14:35 14:35 14:35 WBC 13.69 H (4.0-11.0) K/uL RBC 3.69 L (4.30-5.90) M/uL Hgb 10.8 L (12.0-16.0) g/dL Hct 32.7 L (36.0-46.0) % MCV 88.6 (80.0-98.0) fL MCH 29.3 (27.0-32.0) pg MCHC 33.0 (31.0-37.0) g/dL RDW Std Deviation 42.3 (28.0-62.0) fl RDW Coeff of Almita 13 (11.0-15.0) % Plt Count 349 (150-400) K/uL MPV 9.90 (7.40-12.00) fL Neut % (Auto) 80.5 H (48.0-80.0) % Lymph % (Auto) 12.0 L (16.0-40.0) % [place] % (Auto) 6.8 (0.0-15.0) % Eos % (Auto) 0.5 (0.0-7.0) % Baso % (Auto) 0.2 (0.0-1.5) % Neut # (Auto) 11.0 H (1.4-5.7) K/uL Lymph # (Auto) 1.6 (0.6-2.4) K/uL [place] # (Auto) 0.9 H (0.0-0.8) K/uL Eos # (Auto) 0.1 (0.0-0.7) K/uL Baso # (Auto) 0.0 (0.0-0.1) K/uL Nucleated RBC % 0.0 /100WBC Nucleated RBCs # 0 K/uL Lactate 1.0 (0.20-2.00) mmol/L Sodium 138 (136-145) mmol/L Potassium 3.2 L (3.5-5.1) mmol/L Chloride 101 (98-107) mmol/L Carbon Dioxide 21.8 (21.0-32.0) mmol/L BUN 6 L (7.0-18.0) mg/dL Creatinine 0.8 (0.6-1.0) mg/dL Est Cr Clr Drug Dosing 82.33 mL/min Estimated GFR (MDRD) > 60.0 ml/min Glucose 94 (74-106) mg/dL Calcium 8.7 (8.5-10.1) mg/dL Total Bilirubin 0.3 (0.2-1.0) mg/dL AST 51 H (15-37) IU/L ALT 60 (14-63) IU/L Alkaline Phosphatase 169 H (46-116) U/L Total Protein 7.0 (6.4-8.2) g/dL Albumin 3.3 L (3.4-5.0) g/dL Globulin 3.7 (2.6-4.0) g/dL Albumin/Globulin Ratio 0.9 (0.9-1.6) Meds: Medications Discontinued Medications Generic Name Dose Route Start Last Admin Trade Name Lorenzoq PRN Reason Stop Dose Admin Sodium Chloride 1,000 mls @ 999 mls/hr 01/21/20 14:05 01/21/20 14:40 Normal Saline IV 01/21/20 15:05 999 mls/hr STAT ONE Administration Ketorolac Tromethamine 30 mg 01/21/20 14:24 01/21/20 14:46 Toradol IVPUSH 01/21/20 14:25 30 mg ONETIME ONE Administration Promethazine HCl 25 mg 01/21/20 14:23 01/21/20 14:45 Phenergan IM 01/21/20 14:24 25 mg ONETIME ONE Administration Departure - Departure Time of Disposition: 15:18 Disposition: Refer to Observation Clinical Impression: Pyelonephritis - Discharge Information Instructions: Pyelonephritis, Adult, [id number] Referrals: PCP,None [Primary Care Provider] - Forms: ED Department Discharge Sepsis Event Note (ED) - Focused Exam Vital Signs: Vital Signs Temp Pulse Resp BP Pulse Ox 01/21/20 14:31 99.8 F 105 H 20 104/62 97 - My Orders Last 24 Hours: My Active Orders 01/21/20 14:17 CORONAVIRUS COVID-19 PCR PHL Stat 01/21/20 14:25 UA RFX LUCY AND CULT IF INDIC [URIN] Stat - Assessment/Plan Last 24 Hours: My Active Orders 01/21/20 14:17 CORONAVIRUS COVID-19 PCR PHL Stat 01/21/20 14:25 UA RFX LUCY AND CULT IF INDIC [URIN] Stat
[2020-01-21] MEDS ORDERED: Sodium Chloride 0.9% 1,000 ML IV ONE ×2 (14:05→17:45)
[2020-01-21] MEDS ORDERED: Promethazine 25 MG/ML SDV IM ONE (14:23)
[2020-01-21] MEDS ORDERED: Ketorolac 30 MG/ML SDV IVPUSH ONE (14:24)
[2020-01-21 15:14] LABS: BLOOD UREA NITROGEN,BUN 6 mg/dL (7.0-18.0); CARBON DIOXIDE,CO2 21.8 mmol/L (21.0-32.0); CHLORIDE,CL 101 mmol/L (98-107); GLUCOSE RANDOM 94 mg/dL (74-106); POTASSIUM,K 3.2 mmol/L (3.5-5.1); SODIUM,NA 138 mmol/L (136-145)
[2020-01-21] MEDS ORDERED: cefTRIAXone 1 GM in Premix Bag 1 BAG IV ONE (15:23)
--- NOTE | 2020-01-21 16:00 | PCM.HP.2 ---
<Cecilia Villanueva - Last Filed: 01/21/20 17:46> H&P History of Present Illness - General Date of Service: 01/21/20 Admit Problem/Dx: Admission Diagnosis/Problem Admission Diagnosis/Problem Pyelonephritis Source of Information: Patient History Limitations: Reports: No Limitations - History of Present Illness Initial Comments - Free Text/Narative: 39-year-old female significant past medical history of hypothyroidism presenting with persistent bilateral flank pain, nausea and fevers at home of 101/T-max 101. Endorses dysuria, polyuria and bilateral flank pain x2 weeks; was seen in the ED 2 days prior and was advised for admission for fluids and IV antibiotics. Patient at the time deferred admission and was sent home with a 1 dose of IM ceftriaxone and p.o. Levaquin. CT abdomen pelvis did demonstrate non- obstructing urethral kidney stones and pyelonephritis. Patient on arrival today explained worsening symptoms and was given 1 dose of ketorolac and given 1 dose of ceftriaxone as well. Too konly one dose of Levaquin prior to returning ED course: IV ketorolac and Phenergan provided to patient 1 Liter IV fluids Bedside: improving Nausea; pain improving . Endorses feeling thirst and "dehydrated" ; pain improving otherwise. Abdominal Pain Score (Numeric/FACES): 9 - Related Data Allergies/Adverse Reactions: Allergies Allergy/AdvReac Type Severity Reaction Status Date / Time No Known Allergies Allergy Verified 01/23/20 12:37 Home Medications: Home Meds Levothyroxine [Synthroid] 50 mcg PO ACBREAKFAST 03/10/17 [History] Acetaminophen [Tylenol Extra Strength] 1,000 mg PO BID 03/14/18 [History] Pnv No.103/Folic/Om3s/Fish Oil [ Gummies] 2 tab PO DAILY 03/14/18 [History] Phenazopyridine HCl [Pyridium] 200 mg PO TID 2 Days #6 tablet 01/20/20 [Rx] levoFLOXacin [Levofloxacin] 750 mg PO DAILY 5 Days #5 tablet 01/20/20 [Rx] Acetaminophen [Tylenol Extra Strength] 500 mg PO Q4H PRN tablet 01/23/20 [Rx] Ondansetron [Zofran ODT] 4 mg PO Q6H PRN 2 Days #8 tab.dis 09/06/20 [Rx] Past Medical History - Past Health History Medical/Surgical History: Denies Medical/Surgical History [employer] History: Reports: Psychiatric History: Reports: Anxiety Endocrine/Metabolic History: Reports: Hypothyroidism Hematologic History: Reports: Anemia - Infectious Disease History Infectious Disease History: Reports: Chicken Pox - Past Surgical History HEENT Surgical History: Reports: Tonsillectomy Musculoskeletal Surgical History: Reports: Other (See Below) Other Musculoskeletal Surgeries/Procedures:: tendon repair Social & Family History - Family History Family Medical History: Noncontributory Cardiac: Reports: Hypertension, PA Respiratory: Reports: COPD OBGYN: Reports: Psychiatric: Reports: Depression Endocrine/Metabolic: Reports: Diabetes, type II - Tobacco Use Smoking Status *Q: Current Every Day Smoker Years of Tobacco use: 20 Packs/Tins Daily: 0.5 - Caffeine Use Caffeine Use: Reports: Soda - Recreational Drug Use Recreational Drug Use: No H&P Review of Systems - Review of Systems: Review Of Systems: See Below General: Denies: Fever, Chills HEENT: Reports: No Symptoms Pulmonary: Reports: No Symptoms Cardiovascular: Reports: No Symptoms Gastrointestinal: Reports: Abdominal Pain. Denies: Constipation, Diarrhea Genitourinary: Reports: Dysuria, Frequency, Burning, Flank Pain. Denies: Incontinence Musculoskeletal: Reports: No Symptoms Skin: Reports: No Symptoms Psychiatric: Reports: No Symptoms Neurological: Reports: No Symptoms Hematologic/Lymphatic: Reports: No Symptoms Exam - Exam Exam: See Below - Vital Signs Vital Signs: Last Vital Signs Temp 99.8 F 01/21/20 14:31 Pulse 105 H 01/21/20 14:31 Resp 20 01/21/20 14:31 BP 104/62 01/21/20 14:31 Pulse Ox 97 01/21/20 14:31 Weight: 77.111 kg - Exam Quality Assessment: No: Supplemental Oxygen General: Alert, Oriented, Cooperative HEENT: EOMI Neck: Supple, Trachea Midline Lungs: Clear to Auscultation, Normal Respiratory Effort Cardiovascular: Regular Rate, Regular Rhythm GI/Abdominal Exam: Soft, Other (flank tenderness b/l; mild tenderness of belly ; ) Skin: Warm, Dry Neuro Extensive - Mental Status: Alert, Oriented x3, Normal Mood/Affect Neuro Extensive - Motor, Sensory, Reflexes: CN II-XII Intact - Patient Data Lab Results Last 24 hrs: Laboratory Results - last 24 hr 01/21/20 01/21/20 01/21/20 Range/Units 14:25 14:35 14:35 WBC 13.69 H (4.0-11.0) K/uL RBC 3.69 L (4.30-5.90) M/uL Hgb 10.8 L (12.0-16.0) g/dL Hct 32.7 L (36.0-46.0) % MCV 88.6 (80.0-98.0) fL MCH 29.3 (27.0-32.0) pg MCHC 33.0 (31.0-37.0) g/dL RDW Std Deviation 42.3 (28.0-62.0) fl RDW Coeff of [place]mit[place] 13 (11.0-15.0) % Plt Count 349 (150-400) K/uL MPV 9.90 (7.40-12.00) fL Neut % (Auto) 80.5 H (48.0-80.0) % Lymph % (Auto) 12.0 L (16.0-40.0) % [place] % (Auto) 6.8 (0.0-15.0) % Eos % (Auto) 0.5 (0.0-7.0) % Baso % (Auto) 0.2 (0.0-1.5) % Neut # (Auto) 11.0 H (1.4-5.7) K/uL Lymph # (Auto) 1.6 (0.6-2.4) K/uL [place] # (Auto) 0.9 H (0.0-0.8) K/uL Eos # (Auto) 0.1 (0.0-0.7) K/uL Baso # (Auto) 0.0 (0.0-0.1) K/uL Nucleated RBC % 0.0 /100WBC Nucleated RBCs # 0 K/uL Lactate (0.20-2.00) mmol/L Sodium 138 (136-145) mmol/L Potassium 3.2 L (3.5-5.1) mmol/L Chloride 101 (98-107) mmol/L Carbon Dioxide 21.8 (21.0-32.0) mmol/L BUN 6 L (7.0-18.0) mg/dL Creatinine 0.8 (0.6-1.0) mg/dL Est Cr Clr Drug Dosing 82.33 mL/min Estimated GFR (MDRD) > 60.0 ml/min Glucose 94 (74-106) mg/dL Calcium 8.7 (8.5-10.1) mg/dL Total Bilirubin 0.3 (0.2-1.0) mg/dL AST 51 H (15-37) IU/L ALT 60 (14-63) IU/L Alkaline Phosphatase 169 H (46-116) U/L Total Protein 7.0 (6.4-8.2) g/dL Albumin 3.3 L (3.4-5.0) g/dL Globulin 3.7 (2.6-4.0) g/dL Albumin/Globulin Ratio 0.9 (0.9-1.6) Urine Color ORANGE Urine Appearance CLEAR Urine pH (5.0-8.0) Ur Specific [place] (1.001-1.035) Urine Protein (NEGATIVE) mg/dL Urine Glucose (UA) (NEGATIVE) mg/dL Urine Ketones (NEGATIVE) mg/dL Urine Occult Blood (NEGATIVE) Urine Nitrite (NEGATIVE) Urine Bilirubin (NEGATIVE) Urine Urobilinogen (<2.0) EU/dL Ur Leukocyte Esterase (NEGATIVE) Urine RBC 0-2 (0-2/HPF) Urine WBC 0-2 (0-5/HPF) Ur Epithelial Cells RARE (NONE-FEW) Urine Bacteria RARE (NEGATIVE) 01/21/20 Range/Units 14:35 WBC (4.0-11.0) K/uL RBC (4.30-5.90) M/uL Hgb (12.0-16.0) g/dL Hct (36.0-46.0) % MCV (80.0-98.0) fL MCH (27.0-32.0) pg MCHC (31.0-37.0) g/dL RDW Std Deviation (28.0-62.0) fl RDW Coeff of [place] (11.0-15.0) % Plt Count (150-400) K/uL MPV (7.40-12.00) fL Neut % (Auto) (48.0-80.0) % Lymph % (Auto) (16.0-40.0) % [place] % (Auto) (0.0-15.0) % Eos % (Auto) (0.0-7.0) % Baso % (Auto) (0.0-1.5) % Neut # (Auto) (1.4-5.7) K/uL Lymph # (Auto) (0.6-2.4) K/uL [place] # (Auto) (0.0-0.8) K/uL Eos # (Auto) (0.0-0.7) K/uL Baso # (Auto) (0.0-0.1) K/uL Nucleated RBC % /100WBC Nucleated RBCs # K/uL Lactate 1.0 (0.20-2.00) mmol/L Sodium (136-145) mmol/L Potassium (3.5-5.1) mmol/L Chloride (98-107) mmol/L Carbon Dioxide (21.0-32.0) mmol/L BUN (7.0-18.0) mg/dL Creatinine (0.6-1.0) mg/dL Est Cr Clr Drug Dosing mL/min Estimated GFR (MDRD) ml/min Glucose (74-106) mg/dL Calcium (8.5-10.1) mg/dL Total Bilirubin (0.2-1.0) mg/dL AST (15-37) IU/L ALT (14-63) IU/L Alkaline Phosphatase (46-116) U/L Total Protein (6.4-8.2) g/dL Albumin (3.4-5.0) g/dL Globulin (2.6-4.0) g/dL Albumin/Globulin Ratio (0.9-1.6) Urine Color Urine Appearance Urine pH (5.0-8.0) Ur Specific [place] (1.001-1.035) Urine Protein (NEGATIVE) mg/dL Urine Glucose (UA) (NEGATIVE) mg/dL Urine Ketones (NEGATIVE) mg/dL Urine Occult Blood (NEGATIVE) Urine Nitrite (NEGATIVE) Urine Bilirubin (NEGATIVE) Urine Urobilinogen (<2.0) EU/dL Ur Leukocyte Esterase (NEGATIVE) Urine RBC (0-2/HPF) Urine WBC (0-5/HPF) Ur Epithelial Cells (NONE-FEW) Urine Bacteria (NEGATIVE) Result Diagrams: 01/21/20 14:35 01/21/20 14:35 Sepsis Event Note - Evaluation Sepsis Screening Result: No Definite Risk - Focused Exam Vital Signs: Vital Signs Temp Pulse Resp BP Pulse Ox 01/21/20 14:31 99.8 F 105 H 20 104/62 97 Problem List Initiated/Reviewed/Updated: Yes Orders Last 24hrs: Active Orders 24 hr Category Date Time Status Admission Status [Patient Status] [ADT] Stat ADT 01/21/20 15:22 Active CORONAVIRUS COVID-19 TEJAS [MOLEC] Stat Lab 01/21/20 15:13 Received Assessment/Plan Comment:: Assessment 1. Acute pyelonephritis 2. Leukocytosis secondary to above 3. Hypokalemia 4. Elevated alkaline phosphatase 5. COVID negative Plan Admit to observation. Full code. I's and O's per routine. DVT prophylaxis Heparin(patient deferred) GI prophylaxis; pantoprazole 40 daily 1. Acute pyelonephritis; will start patient on Zosyn 3.375 every 6 hours; awaiting cultures. Endorses removing menstrual cup as seen on CT abdomen. LMP: 2 days earlier. IV fluids of NS 100 cc hour; encourage PO intake Non-obstructing Kidney stones appreciated on CT 2. Leukocytosis; repeat CBC in a.m.. 3. Hypokalemia: Replete and recheck in a.m. <Payton Pedro - Last Filed: 01/24/20 11:28> H&P History of Present Illness - General Admit Problem/Dx: Admission Diagnosis/Problem Admission Diagnosis/Problem Pyelonephritis - History of Present Illness Initial Comments - Free Text/Narative: I performed a history and physical exam of the patient and discussed management with resident. I have reviewed the residents note and agree with documented findings and plan unless otherwise specified in my note. Abdominal Pain Score (Numeric/FACES): 5 Neck Pain Score (Numeric/FACES): 5 Exam - Vital Signs Vital Signs: Last Vital Signs Temp 36.3 C 01/23/20 12:00 Pulse 68 01/23/20 12:00 Resp 12 01/23/20 12:00 BP 123/68 01/23/20 12:00 Pulse Ox 96 01/23/20 12:00 - Patient Data Result Diagrams: 01/23/20 05:50 01/23/20 05:50 - Problem List (1) Pyelonephritis SNOMED Code(s): 34150062 ICD Code: N12 - TUBULO-INTERSTITIAL NEPHRITIS, NOT SPCF ACUTE OR CHRONIC Status: Acute (2) Hypothyroid SNOMED Code(s): 65610557 ICD Code: E03.9 - HYPOTHYROIDISM, UNSPECIFIED Status: Acute
[2020-01-21] MEDS ORDERED: Ondansetron 4 MG/2 ML SDV IVPUSH PRN (16:03)
[2020-01-21] MEDS ORDERED: Potassium Chloride 20 MEQ Tab.ER PO ONE (16:06)
[2020-01-21] MEDS: Pantoprazole 40 MG in Sodium Chloride 0.9% 10 ML IV SCH (17:21)
[2020-01-21] MEDS: Heparin Sodium 5,000 Units/ML Vial SUBCUT SCH (17:21)
[2020-01-21] MEDS: Piperacillin/Tazobactam 3.375 GM in Sodium Chloride 0.9% 100 ML IV SCH ×2 (17:21→22:33)
[2020-01-21] MEDS: Ibuprofen 400 MG Tab PO PRN (19:41)
[2020-01-22] MEDS: Acetaminophen 500 MG Tab PO PRN ×3 (00:42→20:43)
[2020-01-22] MEDS: Piperacillin/Tazobactam 3.375 GM in Sodium Chloride 0.9% 100 ML IV SCH ×3 (04:11→16:01)
[2020-01-22] MEDS: Heparin Sodium 5,000 Units/ML Vial SUBCUT SCH ×2 (04:19→16:31)
[2020-01-22 06:32] LABS: BLOOD UREA NITROGEN,BUN 6 mg/dL (7.0-18.0); CARBON DIOXIDE,CO2 21.9 mmol/L (21.0-32.0); CHLORIDE,CL 108 mmol/L (98-107); GLUCOSE RANDOM 96 mg/dL (74-106); POTASSIUM,K 3.8 mmol/L (3.5-5.1); SODIUM,NA 142 mmol/L (136-145)
[2020-01-22] MEDS: Levothyroxine 50 MCG Tab PO SCH (07:18)
[2020-01-22] MEDS: Pantoprazole 40 MG in Sodium Chloride 0.9% 10 ML IV SCH (09:27)
[2020-01-22] MEDS: Ibuprofen 400 MG Tab PO PRN ×2 (09:27→23:26)
[2020-01-22] MEDS: diphenhydrAMINE 25 MG Cap PO SCH ×2 (12:42→20:43)
--- NOTE | 2020-01-22 13:56 | PCM.PN ---
- General Info Date of Service: 01/22/20 Admission Dx/Problem (Free Text): Admission Diagnosis/Problem Admission Diagnosis/Problem Pyelonephritis Subjective Update: seen at bedside, pain improved, afebrile - Review of Systems General: Denies: Fever, Weakness, Fatigue HEENT: Denies: Dysphasia, Ear Pain Pulmonary: Denies: Shortness of Breath, Pleuritic Chest Pain Cardiovascular: Denies: Chest Pain, Palpitations Gastrointestinal: Reports: Abdominal Pain (improving). Denies: Constipation, Decreased Appetite, Diarrhea, Melena, Nausea, Vomiting Genitourinary: Reports: Flank Pain (improving). Denies: Frequency, Burning Musculoskeletal: Denies: Shoulder Pain, Arm Pain, Hand Pain Skin: Denies: Jaundice, Mottled, Pallor - Patient Data Vitals - Most Recent: Last Vital Signs Temp 36.8 C 01/22/20 12:02 Pulse 74 01/22/20 12:02 Resp 17 01/22/20 12:02 BP 133/80 01/22/20 12:02 Pulse Ox 97 01/22/20 12:02 Weight - Most Recent: 77.111 kg I&O - Last 24 Hours: Intake & Output 01/21/20 01/22/20 01/22/20 22:59 06:59 14:59 Intake Total 2400 Output Total 1650 Balance 750 Lab Results Last 24 Hours: Laboratory Results - last 24 hr 01/21/20 01/21/20 01/21/20 Range/Units 14:25 14:35 14:35 WBC 13.69 H (4.0-11.0) K/uL RBC 3.69 L (4.30-5.90) M/uL Hgb 10.8 L (12.0-16.0) g/dL Hct 32.7 L (36.0-46.0) % MCV 88.6 (80.0-98.0) fL MCH 29.3 (27.0-32.0) pg MCHC 33.0 (31.0-37.0) g/dL RDW Std Deviation 42.3 (28.0-62.0) fl RDW Coeff of [place]mita 13 (11.0-15.0) % Plt Count 349 (150-400) K/uL MPV 9.90 (7.40-12.00) fL Neut % (Auto) 80.5 H (48.0-80.0) % Lymph % (Auto) 12.0 L (16.0-40.0) % [place] % (Auto) 6.8 (0.0-15.0) % Eos % (Auto) 0.5 (0.0-7.0) % Baso % (Auto) 0.2 (0.0-1.5) % Neut # (Auto) 11.0 H (1.4-5.7) K/uL Lymph # (Auto) 1.6 (0.6-2.4) K/uL [place] # (Auto) 0.9 H (0.0-0.8) K/uL Eos # (Auto) 0.1 (0.0-0.7) K/uL Baso # (Auto) 0.0 (0.0-0.1) K/uL Nucleated RBC % 0.0 /100WBC Nucleated RBCs # 0 K/uL Lactate (0.20-2.00) mmol/L Sodium 138 (136-145) mmol/L Potassium 3.2 L (3.5-5.1) mmol/L Chloride 101 (98-107) mmol/L Carbon Dioxide 21.8 (21.0-32.0) mmol/L BUN 6 L (7.0-18.0) mg/dL Creatinine 0.8 (0.6-1.0) mg/dL Est Cr Clr Drug Dosing 82.33 mL/min Estimated GFR (MDRD) > 60.0 ml/min Glucose 94 (74-106) mg/dL Calcium 8.7 (8.5-10.1) mg/dL Total Bilirubin 0.3 (0.2-1.0) mg/dL AST 51 H (15-37) IU/L ALT 60 (14-63) IU/L Alkaline Phosphatase 169 H (46-116) U/L Total Protein 7.0 (6.4-8.2) g/dL Albumin 3.3 L (3.4-5.0) g/dL Globulin 3.7 (2.6-4.0) g/dL Albumin/Globulin Ratio 0.9 (0.9-1.6) Urine Color ORANGE Urine Appearance CLEAR Urine pH (5.0-8.0) Ur Specific [place] (1.001-1.035) Urine Protein (NEGATIVE) mg/dL Urine Glucose (UA) (NEGATIVE) mg/dL Urine Ketones (NEGATIVE) mg/dL Urine Occult Blood (NEGATIVE) Urine Nitrite (NEGATIVE) Urine Bilirubin (NEGATIVE) Urine Urobilinogen (<2.0) EU/dL Ur Leukocyte Esterase (NEGATIVE) Urine RBC 0-2 (0-2/HPF) Urine WBC 0-2 (0-5/HPF) Ur Epithelial Cells RARE (NONE-FEW) Urine Bacteria RARE (NEGATIVE) SARS Virus RNA (PCR) (NEGATIVE) 01/21/20 01/21/20 01/22/20 Range/Units 14:35 15:13 05:55 WBC 11.21 H (4.0-11.0) K/uL RBC 3.03 L (4.30-5.90) M/uL Hgb 9.1 L (12.0-16.0) g/dL Hct 27.2 L (36.0-46.0) % MCV 89.8 (80.0-98.0) fL MCH 30.0 (27.0-32.0) pg MCHC 33.5 (31.0-37.0) g/dL RDW Std Deviation 43.0 (28.0-62.0) fl RDW Coeff of [place]mita 13 (11.0-15.0) % Plt Count 300 (150-400) K/uL MPV 9.70 (7.40-12.00) fL Neut % (Auto) 70.0 (48.0-80.0) % Lymph % (Auto) 20.1 (16.0-40.0) % [place] % (Auto) 8.1 (0.0-15.0) % Eos % (Auto) 1.4 (0.0-7.0) % Baso % (Auto) 0.4 (0.0-1.5) % Neut # (Auto) 7.9 H (1.4-5.7) K/uL Lymph # (Auto) 2.3 (0.6-2.4) K/uL [place] # (Auto) 0.9 H (0.0-0.8) K/uL Eos # (Auto) 0.2 (0.0-0.7) K/uL Baso # (Auto) 0.0 (0.0-0.1) K/uL Nucleated RBC % 0.0 /100WBC Nucleated RBCs # 0 K/uL Lactate 1.0 (0.20-2.00) mmol/L Sodium (136-145) mmol/L Potassium (3.5-5.1) mmol/L Chloride (98-107) mmol/L Carbon Dioxide (21.0-32.0) mmol/L BUN (7.0-18.0) mg/dL Creatinine (0.6-1.0) mg/dL Est Cr Clr Drug Dosing mL/min Estimated GFR (MDRD) ml/min Glucose (74-106) mg/dL Calcium (8.5-10.1) mg/dL Total Bilirubin (0.2-1.0) mg/dL AST (15-37) IU/L ALT (14-63) IU/L Alkaline Phosphatase (46-116) U/L Total Protein (6.4-8.2) g/dL Albumin (3.4-5.0) g/dL Globulin (2.6-4.0) g/dL Albumin/Globulin Ratio (0.9-1.6) Urine Color Urine Appearance Urine pH (5.0-8.0) Ur Specific [place] (1.001-1.035) Urine Protein (NEGATIVE) mg/dL Urine Glucose (UA) (NEGATIVE) mg/dL Urine Ketones (NEGATIVE) mg/dL Urine Occult Blood (NEGATIVE) Urine Nitrite (NEGATIVE) Urine Bilirubin (NEGATIVE) Urine Urobilinogen (<2.0) EU/dL Ur Leukocyte Esterase (NEGATIVE) Urine RBC (0-2/HPF) Urine WBC (0-5/HPF) Ur Epithelial Cells (NONE-FEW) Urine Bacteria (NEGATIVE) SARS Virus RNA (PCR) NEGATIVE (NEGATIVE) 01/22/20 01/22/20 Range/Units 05:55 10:25 WBC (4.0-11.0) K/uL RBC (4.30-5.90) M/uL Hgb (12.0-16.0) g/dL Hct (36.0-46.0) % MCV (80.0-98.0) fL MCH (27.0-32.0) pg MCHC (31.0-37.0) g/dL RDW Std Deviation (28.0-62.0) fl RDW Coeff of [place]mit[place] (11.0-15.0) % Plt Count (150-400) K/uL MPV (7.40-12.00) fL Neut % (Auto) (48.0-80.0) % Lymph % (Auto) (16.0-40.0) % [place] % (Auto) (0.0-15.0) % Eos % (Auto) (0.0-7.0) % Baso % (Auto) (0.0-1.5) % Neut # (Auto) (1.4-5.7) K/uL Lymph # (Auto) (0.6-2.4) K/uL [place] # (Auto) (0.0-0.8) K/uL Eos # (Auto) (0.0-0.7) K/uL Baso # (Auto) (0.0-0.1) K/uL Nucleated RBC % /100WBC Nucleated RBCs # K/uL Lactate (0.20-2.00) mmol/L Sodium 142 (136-145) mmol/L Potassium 3.8 (3.5-5.1) mmol/L Chloride 108 H (98-107) mmol/L Carbon Dioxide 21.9 (21.0-32.0) mmol/L BUN 6 L (7.0-18.0) mg/dL Creatinine 0.7 (0.6-1.0) mg/dL Est Cr Clr Drug Dosing 90.14 mL/min Estimated GFR (MDRD) > 60.0 ml/min Glucose 96 (74-106) mg/dL Calcium 7.7 L (8.5-10.1) mg/dL Total Bilirubin (0.2-1.0) mg/dL AST (15-37) IU/L ALT (14-63) IU/L Alkaline Phosphatase (46-116) U/L Total Protein (6.4-8.2) g/dL Albumin (3.4-5.0) g/dL Globulin (2.6-4.0) g/dL Albumin/Globulin Ratio (0.9-1.6) Urine Color YELLOW Urine Appearance CLEAR Urine pH 6.0 (5.0-8.0) Ur Specific [place] <= 1.005 (1.001-1.035) Urine Protein NEGATIVE (NEGATIVE) mg/dL Urine Glucose (UA) NEGATIVE (NEGATIVE) mg/dL Urine Ketones NEGATIVE (NEGATIVE) mg/dL Urine Occult Blood TRACE-INTACT H (NEGATIVE) Urine Nitrite NEGATIVE (NEGATIVE) Urine Bilirubin NEGATIVE (NEGATIVE) Urine Urobilinogen 0.2 (<2.0) EU/dL Ur Leukocyte Esterase NEGATIVE (NEGATIVE) Urine RBC 0-3 (0-2/HPF) Urine WBC 0-2 (0-5/HPF) Ur Epithelial Cells FEW (NONE-FEW) Urine Bacteria RARE (NEGATIVE) SARS Virus RNA (PCR) (NEGATIVE) Med Orders - Current: Current Medications Acetaminophen (Tylenol Extra Strength) 500 mg PO Q4H PRN PRN Reason: Fever Last Admin: 01/22/20 07:54 Dose: 500 mg Documented by: Diphenhydramine HCl (Benadryl) 25 mg PO BID [facility] Last Admin: 01/22/20 12:42 Dose: 25 mg Documented by: Heparin Sodium (Porcine) (Heparin Sodium) 5,000 units SUBCUT Q12H [facility] Last Admin: 01/22/20 04:19 Dose: Not Given Documented by: Piperacillin Sod/Tazobactam (Sod 3.375 gm/ Sodium Chloride) 100 mls @ 200 mls/hr IV Q6H [facility] Last Admin: 01/22/20 09:27 Dose: 200 mls/hr Documented by: Pantoprazole Sodium 40 mg/ (Sodium Chloride) 10 mls @ 300 mls/hr IV DAILY [facility] Last Admin: 01/22/20 09:27 Dose: 300 mls/hr Documented by: Ibuprofen (Motrin) 400 mg PO Q6H PRN PRN Reason: Pain Last Admin: 01/22/20 09:27 Dose: 400 mg Documented by: Levothyroxine Sodium (Synthroid) 50 mcg PO ACBREAKFAST [facility] Last Admin: 01/22/20 07:18 Dose: 50 mcg Documented by: Ondansetron HCl (Zofran) 4 mg IVPUSH Q4H PRN PRN Reason: Nausea Discontinued Medications Sodium Chloride (Normal Saline) 1,000 mls @ 999 mls/hr IV STAT ONE Stop: 01/21/20 15:05 Last Admin: 01/21/20 14:40 Dose: 999 mls/hr Documented by: Ceftriaxone Sodium/Dextrose 1 (gm/ Premix) 50 mls @ 100 mls/hr IV ONETIME ONE Stop: 01/21/20 15:52 Last Admin: 01/21/20 16:37 Dose: 100 mls/hr Documented by: Sodium Chloride (Normal Saline) 1,000 mls @ 100 mls/hr IV CONTINUOUS ONE Stop: 01/22/20 03:44 Last Admin: 01/21/20 18:08 Dose: 100 mls/hr Documented by: Ketorolac Tromethamine (Toradol) 30 mg IVPUSH ONETIME ONE Stop: 01/21/20 14:25 Last Admin: 01/21/20 14:46 Dose: 30 mg Documented by: Potassium Chloride (Klor-Con M20) 40 meq PO ONETIME ONE Stop: 01/21/20 16:07 Last Admin: 01/21/20 16:37 Dose: 40 meq Documented by: Promethazine HCl (Phenergan) 25 mg IM ONETIME ONE Stop: 01/21/20 14:24 Last Admin: 01/21/20 14:45 Dose: 25 mg Documented by: - Exam General: Alert, Oriented Neck: Trachea Midline Lungs: Clear to Auscultation, Normal Respiratory Effort Cardiovascular: Regular Rate, Regular Rhythm GI/Abdominal Exam: Normal Bowel Sounds, Soft, Non-Tender, No Organomegaly, No Distention Back Exam: Normal Inspection, Full Range of Motion. No: CVA Tenderness (L), CVA Tenderness (R) Sepsis Event Note - Evaluation Sepsis Screening Result: No Definite Risk - Focused Exam Vital Signs: Vital Signs Temp Pulse Resp BP Pulse Ox 01/22/20 12:02 36.8 C 74 17 133/80 97 01/22/20 07:15 37.7 C 90 17 104/55 L 97 01/22/20 04:15 36.4 C 86 17 110/65 97 - Problem List & Annotations (1) Pyelonephritis SNOMED Code(s): 73649061 Code(s): N12 - TUBULO-INTERSTITIAL NEPHRITIS, NOT SPCF ACUTE OR CHRONIC Status: Acute Current Visit: Yes (2) Hypothyroid SNOMED Code(s): 71809822 Code(s): E03.9 - HYPOTHYROIDISM, UNSPECIFIED Status: Acute Current Visit: Yes - Problem List Review Problem List Initiated/Reviewed/Updated: Yes - Plan Plan:: Assessment 1. Acute pyelonephritis 2. Leukocytosis secondary to above 3. Hypokalemia 4. Elevated alkaline phosphatase 5. COVID negative Plan Full code. I's and O's per routine. DVT prophylaxis Heparin(patient deferred) GI prophylaxis; pantoprazole 40 daily 1. Acute pyelonephritis; clinically improving, cont Zosyn 3.375 every 6 hours; awaiting cultures. wbc count improving, no fevers IV fluids of NS 100 cc hour; encourage PO intake, possible dc in am Non-obstructing Kidney stones appreciated on CT 2. Leukocytosis; resolving 3. Hypokalemia: resolved
[2020-01-22] MEDS ORDERED: Levofloxacin/Dextrose 5%-Water 750 MG in Premix Bag 1 BAG IV SCH (18:00)
[2020-01-23] MEDS: Heparin Sodium 5,000 Units/ML Vial SUBCUT SCH (03:47)
[2020-01-23 06:24] LABS: BLOOD UREA NITROGEN,BUN 5 mg/dL (7.0-18.0); CARBON DIOXIDE,CO2 25.2 mmol/L (21.0-32.0); CHLORIDE,CL 107 mmol/L (98-107); GLUCOSE RANDOM 100 mg/dL (74-106); POTASSIUM,K 3.3 mmol/L (3.5-5.1); SODIUM,NA 142 mmol/L (136-145)
[2020-01-23] MEDS ORDERED: Potassium Chloride 20 MEQ Tab.ER PO ONE (08:08)
[2020-01-23] MEDS: Levothyroxine 50 MCG Tab PO SCH (08:16)
[2020-01-23] MEDS: Pantoprazole 40 MG in Sodium Chloride 0.9% 10 ML IV SCH (08:17)
[2020-01-23] MEDS: diphenhydrAMINE 25 MG Cap PO SCH (08:17)
--- NOTE | 2020-01-23 09:26 | PCM.DCSUM1 ---
<Cecilia Villanueva - Last Filed: 01/23/20 16:53> Discharge Summary - Hospital Course Free Text/Narrative:: Hospital course: Patient is a 39-year-old female with a significant past medical history of 7 para 0 presenting with increasing fevers chills, worsening flank pain and burning on urination. Prior to this admission patient had arrived to the ED 2 days earlier and was prescribed levofloxacin for UTI and concerns of a pyelonephritis were discussed. Patient went home and deferred admission at that time and took 1 dose of levofloxacin but continued to have pain and increasing fevers and chills. Following day return patient returned and CT abdomen pelvis showed no acute processes except a nonobstructing ureteral stones in bilateral kidneys and UA was positive for nitrites and leukocytes. Patient was given 1 dose of ceftriaxone in the ED ED and continued on Zosyn while in the inpatient setting. Cultures from previous ER visit suggested E. coli sensitive to levofloxacin and patient was started on levofloxacin IV; day of discharge patient was feeling tremendously better and requested discharge; patient advised to continue home medication of levofloxacin (complete 7-day course) and a prescription for Zofran is provided. Patient advised to follow PCP in 1 week and continue to drink plenty of fluids and return to the ED if symptoms worsen or return. - Discharge Data Discharge Date: 01/23/20 Discharge Disposition: Home, Self-Care 01 Condition: Good - Referral to Home Health Primary Care Physician: PCP None - Discharge Plan Prescriptions/Med Rec: Ondansetron [Zofran ODT] 4 mg PO Q6H PRN 2 Days #8 tab.dis PRN Reason: Nausea/Vomiting Home Medications: Home Meds Levothyroxine [Synthroid] 50 mcg PO ACBREAKFAST 03/10/17 [History] Acetaminophen [Tylenol Extra Strength] 1,000 mg PO BID 03/14/18 [History] Pnv No.103/Folic/Om3s/Fish Oil [ Gummies] 2 tab PO DAILY 03/14/18 [History] Phenazopyridine HCl [Pyridium] 200 mg PO TID 2 Days #6 tablet 01/20/20 [Rx] levoFLOXacin [Levofloxacin] 750 mg PO DAILY 5 Days #5 tablet 01/20/20 [Rx] Acetaminophen [Tylenol Extra Strength] 500 mg PO Q4H PRN tablet 01/23/20 [Rx] Ondansetron [Zofran ODT] 4 mg PO Q6H PRN 2 Days #8 tab.dis 01/23/20 [Rx] Patient Handouts: Ondansetron tablets, Pyelonephritis, Adult, [id number] Referrals: Jackie Holder BREWERY PUMPER [Nurse Practitioner] - - Discharge Summary/Plan Comment DC Time >30 min.: No - Patient Data Vitals - Most Recent: Last Vital Signs Temp 98.2 F 01/23/20 08:35 Pulse 72 01/23/20 08:35 Resp 16 01/23/20 08:35 BP 122/62 01/23/20 08:35 Pulse Ox 97 01/23/20 08:35 Weight - Most Recent: 77.111 kg I&O - Last 24 hours: Intake & Output 01/22/20 01/23/20 01/23/20 22:59 06:59 14:59 Intake Total 1060 1100 Output Total 1700 2000 Balance -640 -900 Lab Results - Last 24 hrs: Laboratory Results - last 24 hr 01/22/20 01/23/20 01/23/20 Range/Units 10:25 05:50 05:50 WBC 8.54 (4.0-11.0) K/uL RBC 2.97 L (4.30-5.90) M/uL Hgb 8.9 L (12.0-16.0) g/dL Hct 26.5 L (36.0-46.0) % MCV 89.2 (80.0-98.0) fL MCH 30.0 (27.0-32.0) pg MCHC 33.6 (31.0-37.0) g/dL RDW Std Deviation 42.7 (28.0-62.0) fl RDW Coeff of Almita 13 (11.0-15.0) % Plt Count 334 (150-400) K/uL MPV 9.70 (7.40-12.00) fL Neut % (Auto) 53.2 (48.0-80.0) % Lymph % (Auto) 36.9 (16.0-40.0) % Elk % (Auto) 7.1 (0.0-15.0) % Eos % (Auto) 2.3 (0.0-7.0) % Baso % (Auto) 0.5 (0.0-1.5) % Neut # (Auto) 4.5 (1.4-5.7) K/uL Lymph # (Auto) 3.2 H (0.6-2.4) K/uL Elk # (Auto) 0.6 (0.0-0.8) K/uL Eos # (Auto) 0.2 (0.0-0.7) K/uL Baso # (Auto) 0.0 (0.0-0.1) K/uL Nucleated RBC % 0.0 /100WBC Nucleated RBCs # 0 K/uL Sodium 142 (136-145) mmol/L Potassium 3.3 L (3.5-5.1) mmol/L Chloride 107 (98-107) mmol/L Carbon Dioxide 25.2 (21.0-32.0) mmol/L BUN 5 L (7.0-18.0) mg/dL Creatinine 0.7 (0.6-1.0) mg/dL Est Cr Clr Drug Dosing 90.14 mL/min Estimated GFR (MDRD) > 60.0 ml/min Glucose 100 (74-106) mg/dL Calcium 8.1 L (8.5-10.1) mg/dL Urine Color YELLOW Urine Appearance CLEAR Urine pH 6.0 (5.0-8.0) Ur Specific [place] <= 1.005 (1.001-1.035) Urine Protein NEGATIVE (NEGATIVE) mg/dL Urine Glucose (UA) NEGATIVE (NEGATIVE) mg/dL Urine Ketones NEGATIVE (NEGATIVE) mg/dL Urine Occult Blood TRACE-INTACT H (NEGATIVE) Urine Nitrite NEGATIVE (NEGATIVE) Urine Bilirubin NEGATIVE (NEGATIVE) Urine Urobilinogen 0.2 (<2.0) EU/dL Ur Leukocyte Esterase NEGATIVE (NEGATIVE) Urine RBC 0-3 (0-2/HPF) Urine WBC 0-2 (0-5/HPF) Ur Epithelial Cells FEW (NONE-FEW) Urine Bacteria RARE (NEGATIVE) Med Orders - Current: Current Medications Acetaminophen (Tylenol Extra Strength) 500 mg PO Q4H PRN PRN Reason: Fever Last Admin: 01/22/20 20:43 Dose: 500 mg Documented by: Diphenhydramine HCl (Benadryl) 25 mg PO BID JIM Last Admin: 01/23/20 08:17 Dose: 25 mg Documented by: Heparin Sodium (Porcine) (Heparin Sodium) 5,000 units SUBCUT Q12H [facility] Last Admin: 01/23/20 03:47 Dose: Not Given Documented by: Pantoprazole Sodium 40 mg/ (Sodium Chloride) 10 mls @ 300 mls/hr IV DAILY [facility] Last Admin: 01/23/20 08:17 Dose: 300 mls/hr Documented by: Levofloxacin/Dextrose 750 mg/ (Premix) 150 mls @ 100 mls/hr IV Q24H [facility] Last Admin: 01/22/20 18:02 Dose: 100 mls/hr Documented by: Ibuprofen (Motrin) 400 mg PO Q6H PRN PRN Reason: Pain Last Admin: 01/22/20 23:26 Dose: 400 mg Documented by: Levothyroxine Sodium (Synthroid) 50 mcg PO ACBREAKFAST [facility] Last Admin: 01/23/20 08:16 Dose: 50 mcg Documented by: Ondansetron HCl (Zofran) 4 mg IVPUSH Q4H PRN PRN Reason: Nausea Last Admin: 01/22/20 20:43 Dose: 4 mg Documented by: Discontinued Medications Sodium Chloride (Normal Saline) 1,000 mls @ 999 mls/hr IV STAT ONE Stop: 01/21/20 15:05 Last Admin: 01/21/20 14:40 Dose: 999 mls/hr Documented by: Ceftriaxone Sodium/Dextrose 1 (gm/ Premix) 50 mls @ 100 mls/hr IV ONETIME ONE Stop: 01/21/20 15:52 Last Admin: 01/21/20 16:37 Dose: 100 mls/hr Documented by: Piperacillin Sod/Tazobactam (Sod 3.375 gm/ Sodium Chloride) 100 mls @ 200 mls/hr IV Q6H [facility] Last Admin: 01/22/20 16:01 Dose: 200 mls/hr Documented by: Sodium Chloride (Normal Saline) 1,000 mls @ 100 mls/hr IV CONTINUOUS ONE Stop: 01/22/20 03:44 Last Admin: 01/21/20 18:08 Dose: 100 mls/hr Documented by: Ketorolac Tromethamine (Toradol) 30 mg IVPUSH ONETIME ONE Stop: 01/21/20 14:25 Last Admin: 01/21/20 14:46 Dose: 30 mg Documented by: Potassium Chloride (Klor-Con M20) 40 meq PO ONETIME ONE Stop: 01/21/20 16:07 Last Admin: 01/21/20 16:37 Dose: 40 meq Documented by: Potassium Chloride (Klor-Con M20) 40 meq PO ONETIME ONE Stop: 01/23/20 08:09 Last Admin: 01/23/20 08:29 Dose: 40 meq Documented by: Promethazine HCl (Phenergan) 25 mg IM ONETIME ONE Stop: 01/21/20 14:24 Last Admin: 01/21/20 14:45 Dose: 25 mg Documented by: <Payton Pedro - Last Filed: 01/24/20 11:41> Discharge Summary - Hospital Course Free Text/Narrative:: I have seen and evaluated the patient and agree with the residents note unless specified in my note - Referral to Home Health Primary Care Physician: PCP None - Discharge Diagnosis/Problem(s) (1) Pyelonephritis SNOMED Code(s): 14644026 ICD Code: N12 - TUBULO-INTERSTITIAL NEPHRITIS, NOT SPCF ACUTE OR CHRONIC Status: Acute (2) Hypothyroid SNOMED Code(s): 71544218 ICD Code: E03.9 - HYPOTHYROIDISM, UNSPECIFIED Status: Acute - Patient Data Vitals - Most Recent: Last Vital Signs Temp 36.3 C 01/23/20 12:00 Pulse 68 01/23/20 12:00 Resp 12 01/23/20 12:00 BP 123/68 01/23/20 12:00 Pulse Ox 96 01/23/20 12:00 Med Orders - Current: Current Medications Discontinued Medications Acetaminophen (Tylenol Extra Strength) 500 mg PO Q4H PRN PRN Reason: Fever Last Admin: 01/23/20 09:52 Dose: 500 mg Documented by: Diphenhydramine HCl (Benadryl) 25 mg PO BID JIM Last Admin: 01/23/20 08:17 Dose: 25 mg Documented by: Heparin Sodium (Porcine) (Heparin Sodium) 5,000 units SUBCUT Q12H JIM Last Admin: 01/23/20 03:47 Dose: Not Given Documented by: Sodium Chloride (Normal Saline) 1,000 mls @ 999 mls/hr IV STAT ONE Stop: 01/21/20 15:05 Last Admin: 01/21/20 14:40 Dose: 999 mls/hr Documented by: Ceftriaxone Sodium/Dextrose 1 (gm/ Premix) 50 mls @ 100 mls/hr IV ONETIME ONE Stop: 01/21/20 15:52 Last Admin: 01/21/20 16:37 Dose: 100 mls/hr Documented by: Piperacillin Sod/Tazobactam (Sod 3.375 gm/ Sodium Chloride) 100 mls @ 200 mls/hr IV Q6H [facility] Last Admin: 01/22/20 16:01 Dose: 200 mls/hr Documented by: Pantoprazole Sodium 40 mg/ (Sodium Chloride) 10 mls @ 300 mls/hr IV DAILY [facility] Last Admin: 01/23/20 08:17 Dose: 300 mls/hr Documented by: Sodium Chloride (Normal Saline) 1,000 mls @ 100 mls/hr IV CONTINUOUS ONE Stop: 01/22/20 03:44 Last Admin: 01/21/20 18:08 Dose: 100 mls/hr Documented by: Levofloxacin/Dextrose 750 mg/ (Premix) 150 mls @ 100 mls/hr IV Q24H [facility] Last Admin: 01/22/20 18:02 Dose: 100 mls/hr Documented by: Ibuprofen (Motrin) 400 mg PO Q6H PRN PRN Reason: Pain Last Admin: 01/23/20 12:08 Dose: 400 mg Documented by: Ketorolac Tromethamine (Toradol) 30 mg IVPUSH ONETIME ONE Stop: 01/21/20 14:25 Last Admin: 01/21/20 14:46 Dose: 30 mg Documented by: Levothyroxine Sodium (Synthroid) 50 mcg PO ACBREAKFAST [facility] Last Admin: 01/23/20 08:16 Dose: 50 mcg Documented by: Ondansetron HCl (Zofran) 4 mg IVPUSH Q4H PRN PRN Reason: Nausea Last Admin: 01/22/20 20:43 Dose: 4 mg Documented by: Potassium Chloride (Klor-Con M20) 40 meq PO ONETIME ONE Stop: 01/21/20 16:07 Last Admin: 01/21/20 16:37 Dose: 40 meq Documented by: Potassium Chloride (Klor-Con M20) 40 meq PO ONETIME ONE Stop: 01/23/20 08:09 Last Admin: 01/23/20 08:29 Dose: 40 meq Documented by: Promethazine HCl (Phenergan) 25 mg IM ONETIME ONE Stop: 01/21/20 14:24 Last Admin: 01/21/20 14:45 Dose: 25 mg Documented by:
[2020-01-23] MEDS: Acetaminophen 500 MG Tab PO PRN (09:52)
[2020-01-23] MEDS: Ibuprofen 400 MG Tab PO PRN (12:08)
[2020-01-23 12:20] VITALS: BP 123/68; PULSE 68
== END 2020-01-23 13:23 | disposition home or self-care (01) ==
LOC: MW.ED 13:54 → MW.MS 15:58
PROVIDERS: ADMIT Student in an Organized Health Care Education/Training Program; ATTEND Student in an Organized Health Care Education/Training Program
DX: N10 Acute pyelonephritis (principal); F41.9 Anxiety disorder, unspecified; N20.1 Calculus of ureter; D72.829 Elevated white blood cell count, unspecified; E87.6 Hypokalemia; E03.9 Hypothyroidism, unspecified; F17.210 Nicotine dependence, cigarettes, uncomplicated; R74.8 Abnormal levels of other serum enzymes; Z20.828 Contact with and (suspected) exposure to other viral communicable diseases; Z79.890 Hormone replacement therapy; Z79.899 Other long term (current) drug therapy
CPT/HCPCS: 36415; 80048; 80053; 81001; 83605; 85025; 87635; 96361; 96372; 96374; 96375; 99284; A9270; C9113; J0696; J1885; J1956; J2405; J2543; J2550; J7030; J7050; 96365; 96376; 99283; G0378; U0002